=== PATIENT | female | born 1980 | race American Indian/Alaskan Native ===

== ENCOUNTER 2016-12-21 08:12 | Emergency (ER) | payer BC, OTHER ==
[2016-12-21 08:34] VITALS: BP 109/80
--- NOTE | 2016-12-21 09:09 | Emergency Department Report ---
ED General Adult HPI - General Chief complaint: Earache Stated complaint: EAR INFECTION Time Seen by Provider: 12/21/16 08:40 Source: patient Mode of arrival: Ambulatory Limitations: No Limitations - History of Present Illness Initial comments: 36-year-old female presents to the ED complaining about right earache. Patient states she is currently on Augmentin and states that she is still having right sided earache and sinus congestion with pressure. Denies fever, cough, sore throat, shortness of breath, chest pain. States that she has an ENT appointment in about a month. -: Gradual - Related Data Home Medications Medication Instructions Recorded Confirmed Last Taken traMADol [Ultram 50 MG tab] 50 mg PO BID 12/08/14 04/17/15 04/16/15 Pregabalin [Lyrica] 150 mg PO BID 03/12/15 04/17/15 04/16/15 levETIRAcetam [Keppra TAB] 125 mg PO BID 03/12/15 04/17/15 04/17/15 Protonix 1 tab PO DAILY 04/11/15 04/17/15 04/16/15 Zofran 1 tab PO PRN PRN 04/11/15 04/11/15 Unknown Previous Rx's Medication Instructions Recorded Last Taken Type oxyCODONE /ACETAMINOPHEN [Percocet 1 tab PO Q6HR PRN #20 tablet 03/08/15 Rx 5/325 mg] HYDROcodone/APAP 5-325 [[place] 1 each PO Q6HR PRN #15 tablet 05/04/15 Unknown Rx 5/325] Ondansetron [Zofran Odt] 4 mg PO Q4H PRN #15 tab.rapdis 05/04/15 Unknown Rx Fluticasone [Flonase] 1 spray NS QDAY #1 bottle 12/21/16 Unknown Rx Prednisone [predniSONE 10 mg 10 mg PO .TAPER #1 tab.ds.pk 12/21/16 Unknown Rx (6-Day Pack, 21 Tabs)] Allergies Allergy/AdvReac Type Severity Reaction Status Date / Time aspirin AdvReac Bleeding Verified 05/04/15 18:58 carbamazepine [From Tegretol] AdvReac Unknown Verified 05/04/15 18:58 ED Review of Systems ROS: Stated complaint: EAR INFECTION Other details as noted in HPI Constitutional: denies: chills, fever Eyes: denies: eye pain, eye discharge, vision change ENT: ear pain. denies: throat pain Respiratory: denies: cough, shortness of breath, wheezing Cardiovascular: denies: chest pain, palpitations Endocrine: no symptoms reported Gastrointestinal: denies: abdominal pain, nausea, diarrhea Genitourinary: denies: urgency, dysuria, discharge Musculoskeletal: denies: back pain, joint swelling, arthralgia Skin: denies: rash, lesions Neurological: denies: headache, weakness, paresthesias Psychiatric: denies: anxiety, depression Hematological/Lymphatic: denies: easy bleeding, easy bruising ED Past Medical Hx - Past Medical History Previous Medical History?: Yes Hx Hypertension: No Hx CVA: No Hx Congestive Heart Failure: No Hx Diabetes: No Hx GERD: Yes Hx Arthritis: Yes Hx Seizures: Yes (LAST 2013, "jerks" - daily) Hx Asthma: No Hx COPD: No Hx Tuberculosis: No Hx HIV: No Additional medical history: fibromyalgia, mvp, stomach ulcer, GI bleed, spinal stenosis & spondylosis. BILE DUCT STONE - Surgical History Past Surgical History?: Yes Hx Cholecystectomy: Yes Additional Surgical History: endoscopy for ulcer, etopic , tubaligation. BILE DUCT STENT REMOVED - Social History Smoking Status: Never Smoker Substance Use Type: Alcohol - Medications Home Medications: Home Medications Medication Instructions Recorded Confirmed Last Taken Type traMADol [Ultram 50 MG tab] 50 mg PO BID 12/08/14 04/17/15 04/16/15 History oxyCODONE /ACETAMINOPHEN [Percocet 1 tab PO Q6HR PRN #20 tablet 03/08/1504/16/15 Rx 5/325 mg] Pregabalin [Lyrica] 150 mg PO BID 03/12/15 04/17/15 04/16/15 History levETIRAcetam [Keppra TAB] 125 mg PO BID 03/12/15 04/17/15 04/17/15 History Protonix 1 tab PO DAILY 04/11/15 04/17/15 04/16/15 History Zofran 1 tab PO PRN PRN 04/11/15 04/11/15 Unknown History HYDROcodone/APAP 5-325 [[place] 1 each PO Q6HR PRN #15 tablet 05/04/15 Unknown Rx 5/325] Ondansetron [Zofran Odt] 4 mg PO Q4H PRN #15 tab.rapdis 05/04/15 Unknown Rx Fluticasone [Flonase] 1 spray NS QDAY #1 bottle 12/21/16 Unknown Rx Prednisone [predniSONE 10 mg 10 mg PO .TAPER #1 tab.ds.pk 12/21/16 Unknown Rx (6-Day Pack, 21 Tabs)] ED Physical Exam - General Limitations: No Limitations General appearance: alert, in no apparent distress - Head Head exam: Present: atraumatic, normocephalic - Eye Eye exam: Present: normal appearance - ENT ENT exam: Present: mucous membranes moist - Expanded ENT Exam Expanded TM/Canal exam: Effusion: Right TM - Neck Neck exam: Present: normal inspection - Respiratory Respiratory exam: Present: normal lung sounds bilaterally. Absent: respiratory distress - Cardiovascular Cardiovascular Exam: Present: regular rate, normal rhythm. Absent: systolic murmur, diastolic murmur, rubs, gallop - GI/Abdominal GI/Abdominal exam: Present: soft, normal bowel sounds - Extremities Exam Extremities exam: Present: normal inspection - Back Exam Back exam: Present: normal inspection - Neurological Exam Neurological exam: Present: alert, oriented X3 - Psychiatric Psychiatric exam: Present: normal affect, normal mood - Skin Skin exam: Present: warm, dry, intact, normal color. Absent: rash ED Course Vital Signs 12/21/16 08:32 Temperature 98.4 F Pulse Rate 16 L Respiratory 16 Rate Blood Pressure 109/80 O2 Sat by Pulse 100 Oximetry ED Medical Decision Making - Medical Decision Making Patient has fluid in her right middle ear. No sign of infection. Advised to continue taken Augmentin and will add Solu-Medrol and prednisone for outpatient. No acute distress at this time. Critical care attestation.: If time is entered above; I have spent that time in minutes in the direct care of this critically ill patient, excluding procedure time. ED Disposition Clinical Impression: Acute serous otitis media of right ear Disposition: DISCHARGED TO HOME OR SELFCARE Is pt being admited?: No Does the pt Need Aspirin: No Condition: Good Instructions: Earache (ED) Prescriptions: Fluticasone [Flonase] 1 spray NS QDAY #1 bottle Prednisone [predniSONE 10 mg (6-Day Pack, 21 Tabs)] 10 mg PO .TAPER #1 tab.ds.pk Referrals: PRIMARY CARE, [Primary Care Provider] - 3-5 Days Forms: Work/School Release Form(ED) Time of Disposition: 09:09
== END 2016-12-21 09:23 | disposition home or self-care (01) ==
LOC: ED 08:12
DX: H65.01 Acute serous otitis media, right ear (principal); K21.9 Gastro-esophageal reflux disease without esophagitis; M19.90 Unspecified osteoarthritis, unspecified site; Z88.6 Allergy status to analgesic agent; Z88.8 Allergy status to other drugs, medicaments and biological substances
CPT/HCPCS: 96372; 99282; J2930

== ENCOUNTER 2018-01-11 11:50 | Outpatient (CLI) | payer MEDICAID ==
--- NOTE | 2018-01-11 15:30 | XRay Report ---
FINAL REPORT EXAM: XR SPINE CERVICAL 6+V HISTORY: CERVICAL PAIN TECHNIQUE: Seven views of cervical spine. PRIORS: None currently available. FINDINGS: Severe degenerative disc may be causing straightening of the normal lordotic alignment C5-C6 noted. Mild disc space narrowing at C4-C5. Otherwise disc spaces are intact. Vertebral body heights are uniform. No fracture or subluxation. Prevertebral soft tissues are unremarkable. Flexion and extension views are unremarkable. Neural foraminal narrowing is present. No scoliosis. No suspicious osseous lesions. No vertebral anomalies. Lateral masses of C1 are aligned with C2. IMPRESSION: Degenerative discs at C4-C6. Possibly related straightening of the normal lordotic alignment.
== END 2018-01-11 11:51 | disposition home or self-care (01) ==
LOC: XRAY 11:50
PROVIDERS: ATTEND Physical Medicine & Rehabilitation
DX: M50.321 Other cervical disc degeneration at C4-C5 level (principal); M50.322 Other cervical disc degeneration at C5-C6 level
CPT/HCPCS: 72052

== ENCOUNTER 2018-12-21 10:16 | Inpatient (IN) | payer MEDICAID ==
[2018-12-21 10:48] LABS: Basophils # (Auto) 0.1 K/mm3 (0.0-0.1); Basophils % (Auto) 0.9 % (0.0-1.8); Eosinophils % (Auto) 0.4 % (0.0-4.3); Hematocrit 32.3 % (30.3-42.9); Hemoglobin 10.7 gm/dl (10.1-14.3); Lymphocytes # (Auto) 1.3 K/mm3 (1.2-5.4); Lymphocytes % (Auto) 21.6 % (13.4-35.0); Mean Corpuscular HGB Conc 33 % (30-34); Mean Corpuscular Volume 97 fl (79-97); Monocytes # (Auto) 0.2 K/mm3 (0.0-0.8); Monocytes % (Auto) 3.8 % (0.0-7.3); Platelet Count 284 K/mm3 (140-440); Red Blood Count 3.32 M/mm3 (3.65-5.03); Red Cell Distribution Width 16.2 % (13.2-15.2)
[2018-12-21] MEDS ORDERED: NACL 0.9% 1000 ML 1,000 ML IV ONE (11:14)
--- NOTE | 2018-12-21 11:20 | Emergency Department Report ---
HPI - General Chief Complaint: GI Bleed Time Seen by Provider: 12/21/18 10:47 - HPI HPI: 38-year-old female presents to the emergency department with complaint of melanotic stool and vomiting of blood since yesterday morning. She has had one episode of vomiting and about 4 episodes of the dark stool. Patient also says that she just has some generalized weakness and/or fatigue. She denies any fever, chest pain, shortness of breath, vaginal bleeding or discharge. The patient does have a history of previous GI bleed from a gastric ulcer. She also has a history of fibromyalgia, mitral valve prolapse, GERD. Her primary care physician is Dr. Stern. 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 She has not taken anything for her symptoms prior to arrival. ED Past Medical Hx - Past Medical History Hx Hypertension: No Hx CVA: No Hx Congestive Heart Failure: No Hx Diabetes: No Hx GERD: Yes Hx Arthritis: Yes Hx Seizures: Yes (LAST 2013, "jerks" - daily) Hx Asthma: No Hx COPD: No Hx Tuberculosis: No Hx HIV: No Additional medical history: fibromyalgia, mvp, stomach ulcer, GI bleed, spinal stenosis & spondylosis. BILE DUCT STONE - Surgical History Hx Cholecystectomy: Yes Additional Surgical History: endoscopy for ulcer, etopic , tubaligation. BILE DUCT STENT REMOVED - Social History Smoking Status: Never Smoker Substance Use Type: Alcohol - Medications Home Medications: Home Medications Medication Instructions Recorded Confirmed Last Taken Type Ferrous Sulfate [Iron] 325 mg PO DAILY 12/21/18 12/21/18 Unknown History Imitrex 100 mg PO PRN 12/21/18 12/19/18 21:00 History 1 Pregabalin [Lyrica] 225 mg PO BID 12/21/18 12/21/18 Unknown History ED Review of Systems ROS: Stated complaint: BLOOD IN STOOL/LOW ENERGY Other details as noted in HPI Comment: All other systems reviewed and negative Constitutional: denies: chills, fever Eyes: denies: eye pain, vision change ENT: denies: ear pain, throat pain Respiratory: denies: cough, shortness of breath Cardiovascular: denies: chest pain, palpitations Gastrointestinal: nausea, vomiting, hematemesis, melena Genitourinary: denies: dysuria, discharge Musculoskeletal: denies: back pain, arthralgia Skin: denies: rash, lesions Neurological: denies: headache, numbness Physical Exam - Physical Exam Vital Signs: Vital Signs 12/21/18 10:29 Temperature 98.2 F Pulse Rate 121 H Respiratory 99 H Rate Blood Pressure 91/67 O2 Sat by Pulse 99 Oximetry Physical Exam: GENERAL: The patient is well-developed well-nourished. HEENT: Normocephalic. Atraumatic. Patient has moist mucous membranes. EYES: Extraocular motions are intact. Pupils are equal and reactive to light bilaterally. NECK: Supple. Trachea is midline. CHEST/LUNGS: Clear to auscultation. There is no respiratory distress noted. HEART/CARDIOVASCULAR: Regular. There is mild tachycardia. There is no obvious murmur. ABDOMEN: Abdomen is soft, nontender. Patient has normal bowel sounds. There is no abdominal distention. SKIN: Skin is warm and dry. NEURO: The patient is awake, alert, and oriented. The patient is cooperative. The patient has no focal neurologic deficits. The patient has normal speech. MUSCULOSKELETAL: There is no tenderness or deformity. There is no limitation range of motion. There is no evidence of acute injury. RECTAL: Patient has dark melanotic appearing stool that is positive on guaiac testing. ED Course Vital Signs 12/21/18 10:29 Temperature 98.2 F Pulse Rate 121 H Respiratory 99 H Rate Blood Pressure 91/67 O2 Sat by Pulse 99 Oximetry - Consultations Consultation #1: Patient was seen in the emergency department by the nurse practitioner for gastroenterology, Danielle. Since I did check the patient's stool and it appeared melanotic and was positive on guaiac testing, they have recommended that the patient will get an EGD tomorrow and to be nothing by mouth after midnight. 12/21/18 19:06 ED Medical Decision Making - Lab Data Result diagrams: 12/21/18 10:33 12/21/18 10:33 - Medical Decision Making Patient presents with the complaint of one episode of hematemesis with dark bloody vomitus, and at least 4 episodes of melanotic stool. She does have a previous history of gastric ulcer. She presents with some mild tachycardia that improved with some IV fluid resuscitation. Patient started on Protonix. I did a rectal exam which did confirm melanotic appearing stool that was positive on guaiac testing. She was seen in the emergency department by gastroenterology tomorrow. The patient has been made nothing by mouth after midnight. She was accepted for admission by the hospitalist, Dr. Baltazar. - Differential Diagnosis peptic ulcer disease, Elidia-Lezama tear, malignancy Critical Care Time: No Critical care attestation.: If time is entered above; I have spent that time in minutes in the direct care of this critically ill patient, excluding procedure time. ED Disposition Clinical Impression: Melena GI bleed Qualifiers: GI bleed type/associated pathology: melena Qualified Code(s): K92.1 - Melena Hematemesis Qualifiers: Nausea presence: unspecified Qualified Code(s): K92.0 - Hematemesis Disposition: DC-09 OP ADMIT IP TO THIS HOSP Is pt being admited?: Yes Condition: Stable Time of Disposition: 13:45
[2018-12-21 11:29] LABS: BUN/Creatinine Ratio 23; Blood Urea Nitrogen 14 mg/dL (7-17); Calcium 9.2 mg/dL (8.4-10.2); Hemolysis Index 35
[2018-12-21 11:40] LABS: INR 0.99 (0.87-1.13); Partial Thromboplastin Time 24.1 Sec. (24.2-36.6)
[2018-12-21] MEDS ORDERED: PROTONIX IV ONE (11:58)
[2018-12-21 12:07] LABS: Bacteria,Urine 1+ /HPF (Negative); Bilirubin,Urine NEG (Negative); Blood,Urine NEG (Negative); Color,Urine Yellow (Yellow); Mucus,Urine 1+ /HPF; Protein,Urine <15 mg/dL mg/dL (Negative); Urobilinogen,Urine < 2.0 mg/dL (<2.0)
[2018-12-21 12:56] LABS: Alanine Aminotransferase 12 units/L (7-56); Albumin 4.2 g/dL (3.9-5)
[2018-12-21 13:01] LABS: Bilirubin,Direct < 0.2 mg/dL (0-0.2)
--- NOTE | 2018-12-21 13:54 | Consultation ---
History of Present Illness - Reason for Consult Consult date: 12/21/18 GI bleed - History of Present Illness Miss Stacy is a 38-year-old woman who presents with new onset of black tarry bowel movements over the last day. She has a history of peptic ulcer disease in 2003 and therefore came to the emergency room thinking that she might be bleeding. She did have an episode of nausea and vomiting yesterday 1 with what she describes as coffee ground emesis. She denies abdominal pain. There's been no chest pain or shortness of breath. She rarely takes NSAIDs. In the emergency room, the rectal exam showed black stool per the ER physician was Hemoccult-positive. Of note, patient states she started iron approximately 2 weeks ago from her primary care physician. There is no lightheadedness or dizziness. Past History Past Medical History: arthritis, GERD, seizures (last 2013), other (Fibromyalgia, PUD - 2003) Past Surgical History: cholecystectomy, Other (ERCP for gallstones in 2014, ectopic ) Social history: alcohol abuse (occ). denies: smoking Family history: no significant family history Medications and Allergies Allergies Allergy/AdvReac Type Severity Reaction Status Date / Time aspirin AdvReac Bleeding Verified 12/21/18 10:17 carbamazepine [From Tegretol] AdvReac Unknown Verified 12/21/18 10:17 Home Medications Medication Instructions Recorded Confirmed Last Taken Type traMADol [Ultram 50 MG tab] 50 mg PO BID 12/08/14 04/17/15 04/16/15 History oxyCODONE /ACETAMINOPHEN [Percocet 1 tab PO Q6HR PRN #20 tablet 03/08/15 04/17/15 04/16/15 Rx 5/325 mg] Pregabalin [Lyrica] 150 mg PO BID 03/12/15 04/17/15 04/16/15 History levETIRAcetam [Keppra TAB] 125 mg PO BID 03/12/15 04/17/15 04/17/15 History Protonix 1 tab PO DAILY 04/11/15 04/17/15 04/16/15 History Zofran 1 tab PO PRN PRN 04/11/15 04/11/15 Unknown History HYDROcodone/APAP 5-325 [[place] 1 each PO Q6HR PRN #15 tablet 05/04/15 Unknown Rx 5-325 mg TAB] Ondansetron [Zofran Odt] 4 mg PO Q4H PRN #15 tab.rapdis 05/04/15 Unknown Rx Fluticasone [Flonase] 1 spray NS QDAY #1 bottle 12/21/16 Unknown Rx Prednisone [predniSONE 10 mg 10 mg PO .TAPER #1 tab.ds.pk 12/21/16 Unknown Rx (6-Day Pack, 21 Tabs)] Active Meds: Active Medications Pantoprazole Sodium 80 mg/ (Sodium Chloride) 100 mls @ 10 mls/hr IV DIRECT DENAE Review of Systems All systems: negative (as per HPI) Exam - Constitutional Vitals: Temp Pulse Resp BP Pulse Ox 98.2 F 121 H 99 H 91/67 99 12/21/18 10:29 12/21/18 10:29 12/21/18 10:29 12/21/18 10:29 12/21/18 10:29 General appearance: Present: no acute distress - EENT Eyes: Present: PERRL, EOM intact ENT: hearing intact - Respiratory Respiratory effort: normal Respiratory: bilateral: CTA - Cardiovascular Rhythm: other (Tachy) Heart Sounds: Present: S1 & S2 - Extremities Extremities: No edema - Abdominal General gastrointestinal: Present: soft, non-tender - Rectal Rectal Exam: other (stool black) Results - Labs CBC & Chem 7: 12/21/18 10:33 12/21/18 10:33 Labs: Abnormal lab results 12/21/18 12/21/18 12/21/18 Range/Units 10:33 10:33 11:06 RBC 3.32 L (3.65-5.03) M/mm3 RDW 16.2 H (13.2-15.2) % Seg Neutrophils % 73.3 H (40.0-70.0) % APTT 24.1 L (24.2-36.6) Sec. Carbon Dioxide 20 L (22-30) mmol/L Creatinine 0.6 L (0.7-1.2) mg/dL Glucose 108 H (65-100) mg/dL U Epithel Cells (Auto) (0-13.0) /HPF 12/21/18 Range/Units 11:53 RBC (3.65-5.03) M/mm3 RDW (13.2-15.2) % Seg Neutrophils % (40.0-70.0) % APTT (24.2-36.6) Sec. Carbon Dioxide (22-30) mmol/L Creatinine (0.7-1.2) mg/dL Glucose (65-100) mg/dL U Epithel Cells (Auto) 22.0 H (0-13.0) /HPF Assessment and Plan 1. Black stoolHemoccult-positive per year physician. This may represent peptic ulcer disease, or more likely, iron-induced color change. Patient is mildly anemic. Given her history, upper endoscopy would be appropriate. However, she ate solid food today. Since she is hemodynamically stable, we will keep her on clear liquids today and make her nothing by mouth after midnight and do an endoscopy tomorrow. In the meantime, empiric proton pump inhibitors. - Monitor H&H and transfuse as needed -PPI -EGD tomorrow
[2018-12-21] MEDS: PROTONIX 80 MG in NACL 0.9% 100 ML IV SCH (15:14)
[2018-12-21] MEDS ORDERED: REGLAN IV PRN (22:30)
[2018-12-21] MEDS ORDERED: ZOFRAN IV PRN (22:30)
[2018-12-21] MEDS ORDERED: TYLENOL PO PRN (22:30)
[2018-12-21] MEDS ORDERED: SODIUM CHLORIDE FLUSH SYRINGE 10 ML IV PRN (22:30)
[2018-12-21] MEDS ORDERED: DILAUDID IV PRN (22:30)
--- NOTE | 2018-12-21 22:33 | History and Physical Report ---
History of Present Illness Date of examination: 12/21/18 Date of admission: 12/21/18 13:45 Chief complaint: Black stools since yesterday History of present illness: 38-year-old -Malag[place] female with history of migraines and peripheral neuropathy comes in for vomiting blood 2 since yesterday and also melanotic stools since yesterday. Patient has been taking Excedrin for headaches. Has some epigastric pain. No shortness of breath or syncope. Feels slightly lightheaded. No exacerbating or relieving factors. This is the first episode of gastrointestinal bleeding. Past Medical History GERD: Yes Arthritis: Yes Seizures: Yes Additional medical history: fibromyalgia, mvp, stomach ulcer, GI bleed, spinal stenosis & spondylosis. BILE DUCT STONE Surgical History Cholecystectomy: Yes Additional Surgical History: endoscopy for ulcer, etopic , tubaligation. BILE DUCT STENT REMOVED Social History Smoking Status: Never Smoker Substance Use Type: Alcohol Family history Htn Medications Home Medications: Home Medications Medication Instructions Recorded Confirmed Last Taken Type Ferrous Sulfate [Iron] 325 mg PO DAILY 12/21/18 12/21/18 Unknown History Imitrex 100 mg PO PRN 12/21/18 12/19/18 21:00 History 1 Pregabalin [Lyrica] 225 mg PO BID 12/21/18 12/21/18 Unknown History Review of Systems ROS: Stated complaint: BLOOD IN STOOL/LOW ENERGY Other details as noted in HPI Comment: All other systems reviewed and negative Constitutional: denies: chills, fever Eyes: denies: eye pain, vision change ENT: denies: ear pain, throat pain Respiratory: denies: cough, shortness of breath Cardiovascular: denies: chest pain, palpitations Gastrointestinal: nausea, vomiting, hematemesis, melena Genitourinary: denies: dysuria, discharge Musculoskeletal: denies: back pain, arthralgia Skin: denies: rash, lesions Neurological: denies: headache, numbness Past History Past Medical History: arthritis, GERD, seizures (last 2013), other (Fibromyalgia, PUD - 2003) Past Surgical History: cholecystectomy, Other (ERCP for gallstones in 2014, ectopic ) Social history: alcohol abuse (occ). denies: smoking Family history: no significant family history Medications and Allergies Allergies Allergy/AdvReac Type Severity Reaction Status Date / Time aspirin AdvReac Bleeding Verified 12/21/18 10:17 carbamazepine [From Tegretol] AdvReac Unknown Verified 12/21/18 10:17 Home Medications Medication Instructions Recorded Confirmed Last Taken Type Ferrous Sulfate [Iron] 325 mg PO DAILY 12/21/18 12/21/18 Unknown History Imitrex 100 mg PO PRN 12/21/18 12/19/18 21:00 History 1 Pregabalin [Lyrica] 225 mg PO BID 12/21/18 12/21/18 Unknown History Active Meds: Active Medications Pantoprazole Sodium 80 mg/ (Sodium Chloride) 100 mls @ 10 mls/hr IV DIRECT DENAE Last Admin: 12/21/18 15:14 Dose: 8 mg/hr, 10 mls/hr Documented by: Exam - Constitutional Vitals: Temp Pulse Resp BP Pulse Ox 99.3 F 84 18 116/83 100 12/21/18 16:15 12/21/18 16:15 12/21/18 16:15 12/21/18 16:15 12/21/18 16:15 General appearance: Present: no acute distress, well-nourished - EENT Eyes: Present: PERRL ENT: hearing intact, clear oral mucosa - Neck Neck: Present: supple, normal ROM - Respiratory Respiratory effort: normal Respiratory: bilateral: CTA - Cardiovascular Heart rate: 76 Rhythm: regular Heart Sounds: Present: S1 & S2. Absent: rub, click - Extremities Extremities: pulses symmetrical, No edema Peripheral Pulses: within normal limits - Abdominal General gastrointestinal: Present: soft, non-tender, non-distended, normal bowel sounds Female genitourinary: Present: normal - Rectal Rectal Exam: stool dark (occult blood Positive) - Integumentary Integumentary: Present: clear, warm, dry - Musculoskeletal Musculoskeletal: gait normal, strength equal bilaterally - Psychiatric Psychiatric: appropriate mood/affect, intact judgment & insight - Neurologic Neurologic: CNII-XII intact, moves all extremities Results - Labs CBC & Chem 7: 12/21/18 10:33 12/21/18 10:33 Labs: Laboratory Last Values WBC 6.0 K/mm3 (4.5-11.0) 12/21/18 10:33 RBC 3.32 M/mm3 (3.65-5.03) L 12/21/18 10:33 Hgb 10.7 gm/dl (10.1-14.3) 12/21/18 10:33 Hct 32.3 % (30.3-42.9) 12/21/18 10:33 MCV 97 fl (79-97) 12/21/18 10:33 MCH 32 pg (28-32) 12/21/18 10:33 MCHC 33 % (30-34) 12/21/18 10:33 RDW 16.2 % (13.2-15.2) H 12/21/18 10:33 Plt Count 284 K/mm3 (140-440) 12/21/18 10:33 Lymph % (Auto) 21.6 % (13.4-35.0) 12/21/18 10:33 [place] % (Auto) 3.8 % (0.0-7.3) 12/21/18 10:33 Eos % (Auto) 0.4 % (0.0-4.3) 12/21/18 10:33 Baso % (Auto) 0.9 % (0.0-1.8) 12/21/18 10:33 Lymph # 1.3 K/mm3 (1.2-5.4) 12/21/18 10:33 [place] # 0.2 K/mm3 (0.0-0.8) 12/21/18 10:33 Eos # 0.0 K/mm3 (0.0-0.4) 12/21/18 10:33 Baso # 0.1 K/mm3 (0.0-0.1) 12/21/18 10:33 Seg Neutrophils % 73.3 % (40.0-70.0) H 12/21/18 10:33 Seg Neutrophils # 4.4 K/mm3 (1.8-7.7) 12/21/18 10:33 PT 13.5 Sec. (12.2-14.9) 12/21/18 11:06 INR 0.99 (0.87-1.13) 12/21/18 11:06 APTT 24.1 Sec. (24.2-36.6) L 12/21/18 11:06 Sodium 138 mmol/L (137-145) 12/21/18 10:33 Potassium 4.2 mmol/L (3.6-5.0) 12/21/18 10:33 Chloride 101.2 mmol/L (98-107) 12/21/18 10:33 Carbon Dioxide 20 mmol/L (22-30) L 12/21/18 10:33 Anion Gap 21 mmol/L 12/21/18 10:33 BUN 14 mg/dL (7-17) 12/21/18 10:33 Creatinine 0.6 mg/dL (0.7-1.2) L 12/21/18 10:33 Estimated GFR > 60 ml/min 12/21/18 10:33 BUN/Creatinine Ratio 23 % 12/21/18 10:33 Glucose 108 mg/dL (65-100) H 12/21/18 10:33 Calcium 9.2 mg/dL (8.4-10.2) 12/21/18 10:33 Total Bilirubin 0.40 mg/dL (0.1-1.2) 12/21/18 10:33 Direct Bilirubin < 0.2 mg/dL (0-0.2) 12/21/18 10:33 Indirect Bilirubin 0.2 mg/dL 12/21/18 10:33 AST 29 units/L (5-40) 12/21/18 10:33 ALT 12 units/L (7-56) 12/21/18 10:33 Alkaline Phosphatase 62 units/L (35-129) 12/21/18 10:33 Total Protein 7.6 g/dL (6.3-8.2) 12/21/18 10:33 Albumin 4.2 g/dL (3.9-5) 12/21/18 10:33 Albumin/Globulin Ratio 1.2 % 12/21/18 10:33 HCG, Qual Negative (Negative) 12/21/18 11:06 Urine Color Yellow (Yellow) 12/21/18 11:53 Urine Turbidity Slightly-cloudy (Clear) 12/21/18 11:53 Urine pH 5.0 (5.0-7.0) 12/21/18 11:53 Ur Specific [place] 1.015 (1.003-1.030) 12/21/18 11:53 Urine Protein <15 mg/dl mg/dL (Negative) 12/21/18 11:53 Urine Glucose (UA) Neg mg/dL (Negative) 12/21/18 11:53 Urine Ketones Neg mg/dL (Negative) 12/21/18 11:53 Urine Blood Neg (Negative) 12/21/18 11:53 Urine Nitrite Neg (Negative) 12/21/18 11:53 Urine Bilirubin Neg (Negative) 12/21/18 11:53 Urine Urobilinogen < 2.0 mg/dL (<2.0) 12/21/18 11:53 Ur Leukocyte Esterase Neg (Negative) 12/21/18 11:53 Urine WBC (Auto) 4.0 /HPF (0.0-6.0) 12/21/18 11:53 Urine RBC (Auto) 2.0 /HPF (0.0-6.0) 12/21/18 11:53 U Epithel Cells (Auto) 22.0 /HPF (0-13.0) H 12/21/18 11:53 Urine Bacteria (Auto) 1+ /HPF (Negative) 12/21/18 11:53 Urine Mucus 1+ /HPF 12/21/18 11:53 Assessment and Plan Advance Directives: Yes (full code) VTE prophylaxis?: Mechanical Plan of care discussed with patient/family: Yes - Patient Problems (1) GI bleed Current Visit: Yes Status: Acute Qualifiers: GI bleed type/associated pathology: melena Qualified Code(s): K92.1 - Melena Plan to address problem: Probably nonsteroidal induced Monitor hemoglobin and hematocrit and transfuse accordingly IV Protonix drip GI consult requested. (2) Peripheral neuropathy Current Visit: Yes Status: Chronic Qualifiers: Peripheral neuropathy type: polyneuropathy, unspecified Qualified Code(s): G62.9 - Polyneuropathy, unspecified Plan to address problem: We will hold the Lyrica (3) Headache, migraine Current Visit: Yes Status: Inactive Plan to address problem: Hold Imitrex (4) DVT prophylaxis Current Visit: Yes Status: Acute Plan to address problem: On SCDs and GI prophylaxis--- patient on Protonix drip
[2018-12-21] MEDS ORDERED: D5NS 1,000 ML IV SCH (23:00)
[2018-12-21 23:38] LABS: Hematocrit 26.4 % (30.3-42.9); Hemoglobin 8.9 gm/dl (10.1-14.3)
[2018-12-22] MEDS: LYRICA PO SCH ×3 (00:25→22:31)
[2018-12-22] MEDS: PROTONIX 80 MG in NACL 0.9% 100 ML IV SCH ×2 (02:00→23:16)
[2018-12-22 06:40] LABS: Basophils % (Auto) 1.3 % (0.0-1.8); Eosinophils # (Auto) 0.1 K/mm3 (0.0-0.4); Eosinophils % (Auto) 2.9 % (0.0-4.3); Hematocrit 26.7 % (30.3-42.9); Hemoglobin 8.9 gm/dl (10.1-14.3); Lymphocytes # (Auto) 1.4 K/mm3 (1.2-5.4); Lymphocytes % (Auto) 40.9 % (13.4-35.0); Mean Corpuscular HGB Conc 33 % (30-34); Mean Corpuscular Volume 98 fl (79-97); Monocytes # (Auto) 0.2 K/mm3 (0.0-0.8); Monocytes % (Auto) 5.3 % (0.0-7.3); Platelet Count 215 K/mm3 (140-440); Red Blood Count 2.74 M/mm3 (3.65-5.03); Red Cell Distribution Width 16.1 % (13.2-15.2)
[2018-12-22 07:00] LABS: Alanine Aminotransferase 9 units/L (7-56); Albumin 3.7 g/dL (3.9-5); BUN/Creatinine Ratio 13; Blood Urea Nitrogen 8 mg/dL (7-17); Calcium 8.6 mg/dL (8.4-10.2); Hemolysis Index 3
[2018-12-22] MEDS ORDERED: PREGABALIN 225 MG PO SCH (10:00)
[2018-12-22] MEDS: FEOSOL PO SCH (10:00)
--- NOTE | 2018-12-22 10:02 | Progress Note ---
Assessment and Plan / GI bleed Probably nonsteroidal induced Monitor hemoglobin and hematocrit and transfuse accordingly IV Protonix drip GI consult requested and planned for EGd today / Peripheral neuropathy We will resume the Lyrica after EGD / Headache, migraine Hold Imitrex / DVT prophylaxis On SCDs Brief history: 38-year-old -Citizen Of [place] female with history of migraines and peripheral neuropathy has been taking Excedrin for headaches comes in for vomiting blood 2 since yesterday and also melanotic stools for 2 days. Hospitalist Physical exam: GENERAL: well-developed AAF lying on bed appeared to be in no discomfort. HEENT: Normocephalic. Atraumatic. No conjunctival congestion or icterus. Patient has moist mucous membranes. NECK: Supple. Trachea midline. CHEST/LUNGS: Clear to auscultated bilaterally, breathing nonlabored. No wheezes crackles or rhonchi. HEART/CARDIOVASCULAR: Regular in rate and rhythm. S1 and S2 positive. ABDOMEN: Abdomen is soft, nontender. Patient has normal bowel sounds. SKIN: There is no rash. Warm and dry. NEURO: No focal motor deficit. Follows command. MUSCULOSKELETAL: No joint effusion or tenderness. EXTRIMITY: No edema, no cyanosis or clubbing. PSYCH: Cooperative. Subjective Date of service: 12/22/18 Interval history: Patient seen and examined denies any abdominal pain, no overt active bleeding Plan for EGD today Objective - Constitutional Vitals: Vital Signs - 12hr 12/21/18 12/22/18 12/22/18 23:10 04:27 04:32 Temperature 98.7 F 98.0 F 98.8 F Pulse Rate 75 74 82 Respiratory 20 24 20 Rate Blood Pressure 93/59 95/52 112/68 O2 Sat by Pulse 99 98 92 Oximetry - Labs CBC & Chem 7: 12/22/18 15:08 12/22/18 06:01 Labs: Abnormal lab results 12/21/18 12/21/18 12/21/18 Range/Units 10:33 10:33 11:06 WBC (4.5-11.0) K/mm3 RBC 3.32 L (3.65-5.03) M/mm3 Hgb (10.1-14.3) gm/dl Hct (30.3-42.9) % MCV (79-97) fl MCH (28-32) pg RDW 16.2 H (13.2-15.2) % Lymph % (Auto) (13.4-35.0) % Seg Neutrophils % 73.3 H (40.0-70.0) % Seg Neutrophils # (1.8-7.7) K/mm3 APTT 24.1 L (24.2-36.6) Sec. Carbon Dioxide 20 L (22-30) mmol/L Creatinine 0.6 L (0.7-1.2) mg/dL Glucose 108 H (65-100) mg/dL Total Protein (6.3-8.2) g/dL Albumin (3.9-5) g/dL U Epithel Cells (Auto) (0-13.0) /HPF 12/21/18 12/21/18 12/22/18 Range/Units 11:53 23:12 06:01 WBC 3.4 L (4.5-11.0) K/mm3 RBC 2.74 L (3.65-5.03) M/mm3 Hgb 8.9 L 8.9 L (10.1-14.3) gm/dl Hct 26.4 L 26.7 L (30.3-42.9) % MCV 98 H (79-97) fl MCH 33 H (28-32) pg RDW 16.1 H (13.2-15.2) % Lymph % (Auto) 40.9 H (13.4-35.0) % Seg Neutrophils % (40.0-70.0) % Seg Neutrophils # 1.7 L (1.8-7.7) K/mm3 APTT (24.2-36.6) Sec. Carbon Dioxide (22-30) mmol/L Creatinine (0.7-1.2) mg/dL Glucose (65-100) mg/dL Total Protein (6.3-8.2) g/dL Albumin (3.9-5) g/dL U Epithel Cells (Auto) 22.0 H (0-13.0) /HPF 12/22/18 Range/Units 06:01 WBC (4.5-11.0) K/mm3 RBC (3.65-5.03) M/mm3 Hgb (10.1-14.3) gm/dl Hct (30.3-42.9) % MCV (79-97) fl MCH (28-32) pg RDW (13.2-15.2) % Lymph % (Auto) (13.4-35.0) % Seg Neutrophils % (40.0-70.0) % Seg Neutrophils # (1.8-7.7) K/mm3 APTT (24.2-36.6) Sec. Carbon Dioxide (22-30) mmol/L Creatinine 0.6 L (0.7-1.2) mg/dL Glucose (65-100) mg/dL Total Protein 6.2 L (6.3-8.2) g/dL Albumin 3.7 L (3.9-5) g/dL U Epithel Cells (Auto) (0-13.0) /HPF
[2018-12-22] MEDS: DILAUDID IV PRN (11:11)
[2018-12-22] MEDS: SODIUM CHLORIDE FLUSH SYRINGE 10 ML IV SCH ×2 (11:12→22:47)
[2018-12-22] MEDS ORDERED: DIPRIVAN 10 MG/ML IV ONE ×2 (14:26)
[2018-12-22] MEDS ORDERED: XYLOCAINE 2% INFILTRATI ONE (14:27)
[2018-12-22] MEDS ORDERED: NACL 0.9% 1000 ML 1,000 ML IV SCH (15:00)
[2018-12-22 15:18] LABS: Hematocrit 28.4 % (30.3-42.9); Hemoglobin 9.3 gm/dl (10.1-14.3)
[2018-12-22] MEDS ORDERED: WATER FOR IRRIG STERILE IR ONE (16:01)
--- NOTE | 2018-12-22 17:03 | Post Operative Note ---
Pre-op diagnosis: Melena Post-op diagnosis: other (Antral ulcers) Findings: 1. 4 antral ulcers, deep, with white base, noted in antrum, with surrounding edema. Biopsied. No stigmata of bleeding, and no fresh or old blood noted. 2. Otherwise normal EGD. Procedure: EGD with biopsy Anesthesia: [facility] [place] Surgeon: JUNIOR RILEY Estimated blood loss: none Pathology: list (Antral mucosa) Specimen disposition: to lab Condition: stable Disposition: floor (March D/C to home on bid PPI, with outpatient follow up.)
--- NOTE | 2018-12-22 17:44 | Operative Report ---
PROCEDURE: Upper endoscopy with biopsy. PREOPERATIVE DIAGNOSES: Melena and peptic ulcer disease. POSTOPERATIVE DIAGNOSES: Peptic ulcer disease with multiple antral ulcer. SEDATION: MAC by Anesthesia. HISTORY: The patient is a 38-year-old woman who presented with a history of black tarry bowel movements for one day and was noted to be anemic with a hemoglobin of 9.3. She has a history of peptic ulcer disease in the past. She also notes that she has a history of chronic anemia. Procedure, indications, risks, and benefits were explained and consent was obtained. The patient was placed in left lateral decubitus position and sedated. MYR video upper endoscope was passed through the mouth and oropharynx into the descending duodenum and then gradually withdrawn with close inspection of the mucosa. FINDINGS: 1. Normal appearing esophagus. 2. Four ulcers noted in the gastric antrum that were deep with white fibrinous base, the largest measuring 1 cm. There was no stigmata of bleeding and there was no evidence of fresh or old blood. There was some surrounding edema in the antrum. Biopsies were obtained. 3. Remainder of gastric antrum, fundus, body, and cardia were normal appearing. 4. Normal appearing duodenal bulb and duodenum. The patient tolerated the procedure well without immediate complication. IMPRESSION: 1. Multiple gastric antral ulcers -- biopsied. No stigmata of bleeding. 2. Otherwise, normal endoscopy. PLAN: 1. Follow up biopsies. 2. B.i.d. proton pump inhibitors. 3. Follow up as an outpatient in 1 month, and check gastrin level and look for H. pylori. [facility]# [id number] HRC/NTS
--- NOTE | 2018-12-22 17:47 | Discharge Summary ---
Providers - Providers Date of Admission: 12/21/18 13:45 Date of discharge: 12/22/18 Attending physician: STEVENSON FINN 12/21/18 13:43 Consult to Physician [CONS] Routine Comment: Consulting Provider: JUNIOR RILEY Physician Instructions: Reason For Exam: GI Bleed, melena Primary care physician: RONALD MCLEOD Hospitalization Condition: Stable Procedures: EGD: 1. 4 antral ulcers, deep, with white base, noted in antrum, with surrounding edema. Biopsied. No stigmata of bleeding, and no fresh or old blood noted. 2. Otherwise normal EGD. Hospital course: Brief history: 38-year-old -[place] female with history of migraines and peripheral neuropathy has been taking Excedrin for headaches comes in for vomiting blood 2 since yesterday and also melanotic stools for 2 days. Discharge diagnosis: / GI bleed due to gastric ulcer Probably nonsteroidal induced Monitored hemoglobin and hematocrit and placed on IV Protonix drip GI consult requested and s/p EGd today / Peripheral neuropathy, on lyrica / Headache, migraine, on Imitrex / DVT prophylaxis On SCDs Hospitalist Physical exam: GENERAL: well-developed AAF lying on bed appeared to be in no discomfort. HEENT: Normocephalic. Atraumatic. No conjunctival congestion or icterus. Patient has moist mucous membranes. NECK: Supple. Trachea midline. CHEST/LUNGS: Clear to auscultated bilaterally, breathing nonlabored. No wheezes crackles or rhonchi. HEART/CARDIOVASCULAR: Regular in rate and rhythm. S1 and S2 positive. ABDOMEN: Abdomen is soft, nontender. Patient has normal bowel sounds. SKIN: There is no rash. Warm and dry. NEURO: No focal motor deficit. Follows command. MUSCULOSKELETAL: No joint effusion or tenderness. EXTRIMITY: No edema, no cyanosis or clubbing. PSYCH: Cooperative. Disposition: DC-01 TO HOME OR SELFCARE Time spent for discharge: 34 minutes Core Measure Documentation - Palliative Care Palliative Care/ Comfort Measures: Not Applicable - Core Measures Any of the following diagnoses?: none Exam - Constitutional Vitals: Temp Pulse Resp BP Pulse Ox 97.9 F 78 15 107/75 99 12/22/18 16:53 12/22/18 17:23 12/22/18 17:23 12/22/18 17:23 12/22/18 17:23 Plan Activity: advance as tolerated Weight Bearing Status: Weight Bear as Tolerated Diet: regular Follow up with: RONALD MCLEOD DO [Primary Care Provider] - 3-5 Days Forms: Accompanied Note Prescriptions: Pantoprazole [Protonix] 40 mg PO BID #60 tablet
[2018-12-22] MEDS: IMITREX PO PRN (20:08)
[2018-12-23] MEDS: IMITREX PO PRN (07:58)
[2018-12-23] MEDS: FEOSOL PO SCH (09:17)
[2018-12-23] MEDS: LYRICA PO SCH (09:18)
[2018-12-23] MEDS ORDERED: PROTONIX PO SCH (10:00)
--- NOTE | 2018-12-23 10:01 | Discharge Summary ---
Providers - Providers Date of Admission: 12/21/18 13:45 Date of discharge: 12/23/18 Attending physician: REJI KC 12/21/18 13:43 Consult to Physician [CONS] Routine Comment: Consulting Provider: JUNIOR RILEY Physician Instructions: Reason For Exam: GI Bleed, melena Primary care physician: RONALD MCLEOD Hospitalization Reason for admission: GI bleed Condition: Stable Pertinent studies: EGD Procedures: EGD Hospital course: Sachi Stacy is a 38-year-old female with history of migraine headaches and fibromyalgia admitted for evaluation of her GI bleed. Her hemoglobin and hematocrit has been fairly stable during that hospitalization. H&H at the time of discharge was 9.3/28.4 GI consult was obtained and subsequently patient had EGD which showed four antral ulcers with no obvious bleeding Biopsy was done. She is medically stable for discharge she'll be discharged on Protonix 40 mg twice daily and follow up with GI doctor noemí in 2 weeks Disposition: DC-01 TO HOME OR SELFCARE Time spent for discharge: 38 min Core Measure Documentation - Palliative Care Palliative Care/ Comfort Measures: Not Applicable - Core Measures Any of the following diagnoses?: none Exam - Constitutional Vitals: Temp Pulse Resp BP Pulse Ox 99.0 F 82 18 89/57 100 12/23/18 06:03 12/23/18 06:03 12/23/18 06:03 12/23/18 06:03 12/23/18 06:03 General appearance: Present: no acute distress, well-nourished - EENT Eyes: Present: PERRL, EOM intact ENT: hearing intact, clear oral mucosa - Neck Neck: Present: supple, normal ROM. Absent: masses or JVD - Respiratory Respiratory effort: normal Respiratory: bilateral: CTA - Cardiovascular Rhythm: regular Heart Sounds: Present: S1 & S2 - Extremities Extremities: No edema - Abdominal General gastrointestinal: Present: soft, non-tender. Absent: hepatomegaly, splenomegaly Female genitourinary: Present: deferred - Rectal Rectal Exam: deferred - Integumentary Integumentary: Present: clear - Musculoskeletal Musculoskeletal: strength equal bilaterally - Psychiatric Psychiatric: appropriate mood/affect - Neurologic Neurologic: no focal deficits Plan Activity: no restrictions Weight Bearing Status: Full Weight Bearing Diet: regular Follow up with: JUNIOR RILEY MD [Staff Physician] - 7 Days RONALD MCLEOD DO [Primary Care Provider] - 14 Days Forms: Accompanied Note Prescriptions: Imitrex 100 mg PO PRN PRN #30 PRN Reason: Migraine Headache Pantoprazole [Protonix] 40 mg PO BID #60 tablet Pantoprazole [Protonix TAB] 40 mg PO BID #60 tablet Pregabalin [Lyrica] 225 mg PO BID #60 capsule
[2018-12-23] MEDS: DILAUDID IV PRN (10:22)
[2018-12-23] MEDS: SODIUM CHLORIDE FLUSH SYRINGE 10 ML IV SCH (10:23)
[2018-12-23 12:13] VITALS: BP 94/62
== END 2018-12-23 12:50 | disposition home or self-care (01) | DRG 379 ==
LOC: ED 10:16 → 3A 13:45 → OBSVTOIN 13:45
PROVIDERS: ADMIT Internal Medicine; ATTEND Internal Medicine
PROC: 0DB68ZX Excision of Stomach, Via Natural or Artificial Opening Endoscopic, Diagnostic (ICD-10-PCS; principal; 2018-12-22)
DX: K25.4 Chronic or unspecified gastric ulcer with hemorrhage (principal); F10.10 Alcohol abuse, uncomplicated; Y90.0 Blood alcohol level of less than 20 mg/100 ml; G62.9 Polyneuropathy, unspecified; G43.909 Migraine, unspecified, not intractable, without status migrainosus; K21.9 Gastro-esophageal reflux disease without esophagitis; Z98.51 Tubal ligation status; Z82.49 Family history of ischemic heart disease and other diseases of the circulatory system; Z90.49 Acquired absence of other specified parts of digestive tract; Z88.8 Allergy status to other drugs, medicaments and biological substances; Z88.6 Allergy status to analgesic agent
CPT/HCPCS: 36415; 80048; 80053; 80076; 81001; 83036; 84703; 85014; 85018; 85025; 85610; 85730; 88305; 88342; 96361; 96374; 99285; G0378; C9113; J1170; J2704; J7030; J7042

== ENCOUNTER 2019-05-15 06:51 | Emergency (ER) | payer MEDICAID ==
[2019-05-15 06:59] VITALS: BP 109/78
[2019-05-15 08:21] LABS: HCG Qualitative,Urine Negative (Negative)
[2019-05-15 08:22] LABS: Bacteria,Urine 1+ /HPF (Negative); Bilirubin,Urine NEG (Negative); Blood,Urine NEG (Negative); Color,Urine Yellow (Yellow); Mucus,Urine 3+ /HPF; Urobilinogen,Urine < 2.0 mg/dL (<2.0)
[2019-05-15 08:53] LABS: BUN/Creatinine Ratio 20; Basophils # (Auto) 0.1 K/mm3 (0.0-0.1); Blood Urea Nitrogen 14 mg/dL (7-17); Calcium 9.3 mg/dL (8.4-10.2); Eosinophils # (Auto) 0.1 K/mm3 (0.0-0.4); Eosinophils % (Auto) 1.2 % (0.0-4.3); Hemolysis Index 18; Monocytes # (Auto) 0.3 K/mm3 (0.0-0.8); Monocytes % (Auto) 5.1 % (0.0-7.3)
[2019-05-15 08:55] LABS: Basophils % (Auto) 1.2 % (0.0-1.8); Hematocrit 34.6 % (30.3-42.9); Hemoglobin 11.2 gm/dl (10.1-14.3); Lymphocytes # (Auto) 1.2 K/mm3 (1.2-5.4); Lymphocytes % (Auto) 21.4 % (13.4-35.0); Mean Corpuscular HGB Conc 32 % (30-34); Mean Corpuscular Volume 87 fl (79-97); Platelet Count 266 K/mm3 (140-440); Red Blood Count 3.97 M/mm3 (3.65-5.03)
--- NOTE | 2019-05-15 09:08 | Emergency Department Report ---
ED General Adult HPI - General Chief complaint: Weakness Stated complaint: GENERAL WEAKNESS Time Seen by Provider: 05/15/19 07:41 Source: patient Mode of arrival: Ambulatory Limitations: No Limitations - History of Present Illness Initial comments: Patient is a 38-year-old female who presents to the emergency room complains of generalized weakness for the last 3-4 days. Has associated fatigue and nausea. 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 She states occasionally she feels lightheaded after being in the heat and standing up all day. She denies any vomiting, diarrhea, fever or urinary symptoms. past medical history of anemia with a blood transfusion in 2008. She states she has a history of fibromyalgia and PUD and takes Soma and tramadol daily. She has allergy to aspirin and Tegretol. Last menstrual cycle April 19. - Related Data Home Medications Medication Instructions Recorded Confirmed Last Taken Ferrous Sulfate [Iron 325 MG] 325 mg PO DAILY 12/21/18 12/21/18 Unknown Previous Rx's Medication Instructions Recorded Last Taken Type Pantoprazole [Protonix] 40 mg PO BID #60 tablet 12/22/18 Unknown Rx Imitrex 100 mg PO PRN PRN #30 12/23/18 Unknown Rx Pantoprazole [Protonix TAB] 40 mg PO BID #60 tablet 12/23/18 Unknown Rx Pregabalin [Lyrica] 225 mg PO BID #60 capsule 12/23/18 Unknown Rx Nitrofurantoin [place]/M-Cryst 100 mg PO BID 5 Days #10 capsule 05/15/19 Unknown Rx [Macrobid CAP] Allergies Allergy/AdvReac Type Severity Reaction Status Date / Time aspirin AdvReac Bleeding Verified 12/21/18 10:17 carbamazepine [From Tegretol] AdvReac Unknown Verified 12/21/18 10:17 ED Review of Systems ROS: Stated complaint: GENERAL WEAKNESS Other details as noted in HPI Comment: All other systems reviewed and negative ED Past Medical Hx - Past Medical History Previous Medical History?: Yes Hx Hypertension: No Hx CVA: No Hx Congestive Heart Failure: No Hx Diabetes: No Hx GERD: Yes Hx Arthritis: Yes Hx Seizures: Yes (LAST 2013, "jerks" - daily) Hx Asthma: No Hx COPD: No Hx Tuberculosis: No Hx HIV: No Additional medical history: fibromyalgia, mvp, stomach ulcer, GI bleed, spinal stenosis & spondylosis. BILE DUCT STONE. anemia - Surgical History Past Surgical History?: Yes Hx Cholecystectomy: Yes Additional Surgical History: endoscopy for ulcer, etopic , tubaligation. BILE DUCT STENT REMOVED - Social History Smoking Status: Never Smoker Substance Use Type: Alcohol - Medications Home Medications: Home Medications Medication Instructions Recorded Confirmed Last Taken Type Ferrous Sulfate [Iron 325 MG] 325 mg PO DAILY 12/21/18 12/21/18 Unknown History Pantoprazole [Protonix] 40 mg PO BID #60 tablet 12/22/18 Unknown Rx Imitrex 100 mg PO PRN PRN #30 12/23/18 Unknown Rx Pantoprazole [Protonix TAB] 40 mg PO BID #60 tablet 12/23/18 Unknown Rx Pregabalin [Lyrica] 225 mg PO BID #60 capsule 12/23/18 Unknown Rx Nitrofurantoin [place]/M-Cryst 100 mg PO BID 5 Days #10 capsule 05/15/19 Unknown Rx [Macrobid CAP] ED Physical Exam - General Limitations: No Limitations General appearance: alert, in no apparent distress - Head Head exam: Present: atraumatic, normocephalic - Eye Eye exam: Present: normal appearance, PERRL - ENT ENT exam: Present: mucous membranes moist - Respiratory Respiratory exam: Present: normal lung sounds bilaterally. Absent: respiratory distress, wheezes, rales, rhonchi, stridor, chest wall tenderness, accessory mu scle use, decreased breath sounds, prolonged expiratory - Cardiovascular Cardiovascular Exam: Present: regular rate, normal rhythm, normal heart sounds. 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 Absent: motor sensory deficit - Psychiatric Psychiatric exam: Present: normal affect, normal mood - Skin Skin exam: Present: warm, dry, intact ED Course Vital Signs 05/15/19 05/15/19 06:54 09:25 Temperature 98.2 F Pulse Rate 104 H 75 Respiratory 18 16 Rate Blood Pressure 109/78 O2 Sat by Pulse 98 100 Oximetry ED Medical Decision Making - Lab Data Result diagrams: 05/15/19 08:11 05/15/19 08:11 Lab Results 05/15/19 05/15/19 05/15/19 Range/Units 07:53 08:11 08:11 [place] % (Auto) 5.1 (0.0-7.3) % Eos % (Auto) 1.2 (0.0-4.3) % [place] # 0.3 (0.0-0.8) K/mm3 Eos # 0.1 (0.0-0.4) K/mm3 Baso # 0.1 (0.0-0.1) K/mm3 Seg Neutrophils % 71.1 H (40.0-70.0) % Seg Neutrophils # 4.0 (1.8-7.7) K/mm3 Sodium 137 (137-145) mmol/L Potassium 4.4 (3.6-5.0) mmol/L Chloride 100.3 (98-107) mmol/L Carbon Dioxide 25 (22-30) mmol/L Anion Gap 16 mmol/L BUN 14 (7-17) mg/dL Creatinine 0.7 (0.7-1.2) mg/dL Estimated GFR > 60 ml/min BUN/Creatinine Ratio 20 % Glucose 82 (65-100) mg/dL Calcium 9.3 (8.4-10.2) mg/dL Magnesium (1.7-2.3) mg/dL Urine Color Yellow (Yellow) Urine Turbidity Cloudy (Clear) Urine pH 5.0 (5.0-7.0) Ur Specific [place] 1.025 (1.003-1.030) Urine Protein 30 mg/dl (Negative) mg/dL Urine Glucose (UA) Neg (Negative) mg/dL Urine Ketones Tr (Negative) mg/dL Urine Blood Neg (Negative) Urine Nitrite Neg (Negative) Ur Reducing Substances Not Reportable Urine Bilirubin Neg (Negative) Urine Ictotest Not Reportable Urine Urobilinogen < 2.0 (<2.0) mg/dL Ur Leukocyte Esterase Lg (Negative) Urine WBC (Auto) 44.0 H (0.0-6.0) /HPF Urine RBC (Auto) 10.0 (0.0-6.0) /HPF U Epithel Cells (Auto) 9.0 (0-13.0) /HPF Urine Bacteria (Auto) 1+ (Negative) /HPF Urine Mucus 3+ /HPF Urine HCG, Qual Negative (Negative) 05/15/19 Range/Units 08:11 [place] % (Auto) (0.0-7.3) % Eos % (Auto) (0.0-4.3) % [place] # (0.0-0.8) K/mm3 Eos # (0.0-0.4) K/mm3 Baso # (0.0-0.1) K/mm3 Seg Neutrophils % (40.0-70.0) % Seg Neutrophils # (1.8-7.7) K/mm3 Sodium (137-145) mmol/L Potassium (3.6-5.0) mmol/L Chloride (98-107) mmol/L Carbon Dioxide (22-30) mmol/L Anion Gap mmol/L BUN (7-17) mg/dL Creatinine (0.7-1.2) mg/dL Estimated GFR ml/min BUN/Creatinine Ratio % Glucose (65-100) mg/dL Calcium (8.4-10.2) mg/dL Magnesium 2.10 (1.7-2.3) mg/dL Urine Color (Yellow) Urine Turbidity (Clear) Urine pH (5.0-7.0) Ur Specific [place] (1.003-1.030) Urine Protein (Negative) mg/dL Urine Glucose (UA) (Negative) mg/dL Urine Ketones (Negative) mg/dL Urine Blood (Negative) Urine Nitrite (Negative) Ur Reducing Substances Urine Bilirubin (Negative) Urine Ictotest Urine Urobilinogen (<2.0) mg/dL Ur Leukocyte Esterase (Negative) Urine WBC (Auto) (0.0-6.0) /HPF Urine RBC (Auto) (0.0-6.0) /HPF U Epithel Cells (Auto) (0-13.0) /HPF Urine Bacteria (Auto) (Negative) /HPF Urine Mucus /HPF Urine HCG, Qual (Negative) - EKG Data EKG shows normal: sinus rhythm, axis, intervals, QRS complexes Rate: normal - EKG Data 05/15/19 09:08 early repol, no STEMI - Medical Decision Making Patient is a 38-year-old female who presents to the emergency room complains of generalized weakness for the last 3-4 days. Has associated fatigue and nausea. 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 She states occasionally she feels lightheaded after being in the heat and standing up all day. She denies any vomiting, diarrhea, fever or urinary symptoms. past medical history of anemia with a blood transfusion in 2008. She states she has a history of fibromyalgia and PUD and takes Soma and tramadol daily. She has allergy to aspirin and Tegretol. Last menstrual cycle April 19. VSS. labs WNL. H/H are normal. electrolytes are normal. EKG is WNL. UA shows evidence of UTI. examination is WNL, no neuro deficits on exam. pt given prescription for macrobid. advised to take medication as prescribed. Drink plenty of water. Follow-up with primary care doctor next 2-3 days. Return to emergency room for any new or worsening symptoms. - Differential Diagnosis electrolyte abnormality, anemia, UTI, arrhythmia, dehydration Critical care attestation.: If time is entered above; I have spent that time in minutes in the direct care of this critically ill patient, excluding procedure time. ED Disposition Clinical Impression: UTI (urinary tract infection) Qualifiers: Urinary tract infection type: acute cystitis Hematuria presence: without hemat uria Qualified Code(s): N30.00 - Acute cystitis without hematuria Fatigue Qualifiers: Fatigue type: unspecified Qualified Code(s): R53.83 - Other fatigue Disposition: TO HOME OR SELFCARE Is pt being admited?: No Does the pt Need Aspirin: No Condition: Stable Instructions: Urinary Tract Infection in Women (ED) Additional Instructions: Take medication as prescribed. Drink plenty of water. Follow-up with primary care doctor next 2-3 days. Return to emergency room for any new or worsening symptoms. Prescriptions: Nitrofurantoin [place]/M-Cryst [Macrobid CAP] 100 mg PO BID 5 Days #10 capsule Referrals: [facility] [Provider Group] - 2-3 Days Time of Disposition: 09:15 Print Language: TRINIDADIAN
[2019-05-15 09:13] LABS: Red Cell Distribution Width 20.2 % (13.2-15.2)
== END 2019-05-15 09:25 | disposition home or self-care (01) ==
LOC: ED 06:51
DX: N39.0 Urinary tract infection, site not specified (principal); R53.83 Other fatigue; R11.0 Nausea; R42 Dizziness and giddiness; M79.7 Fibromyalgia; K21.9 Gastro-esophageal reflux disease without esophagitis; Z88.6 Allergy status to analgesic agent; Z86.2 Personal history of diseases of the blood and blood-forming organs and certain disorders involving the immune mechanism; Z88.5 Allergy status to narcotic agent; Z79.899 Other long term (current) drug therapy; Z90.49 Acquired absence of other specified parts of digestive tract; Z98.51 Tubal ligation status
CPT/HCPCS: 36415; 80048; 81001; 81025; 83735; 85025; 87086; 93005; 93010; 99283

== ENCOUNTER 2019-05-27 21:03 | Emergency (ER) | payer MEDICAID ==
[2019-05-27 21:42] VITALS: BP 118/80
[2019-05-28] MEDS ORDERED: FUL-GLO OP ONE (00:30)
[2019-05-28] MEDS ORDERED: BENADRYL PO ONE (00:39)
[2019-05-28] MEDS ORDERED: IBUPROFEN PO ONE (00:39)
--- NOTE | 2019-05-28 00:48 | Emergency Department Report ---
Eye Injury/Foreign Body - HPI Eye Location: Left Severity: Moderate Tetanus Status: Up to Date Eye Symptoms: Eye Pain: No, Blurred Vision: No, Eye Redness: Yes, Grinding/Hammering Metal: No, Used Eye Protection: No, Contact Lens Use: No, Recalls Injury: Yes, Photophobia: Yes Other History: pt is a 38 y/o aaf who presents for left eye and eyebrow pain s/p baseball to face 4 days ago there was no loc pt was immediately ambulatory on scene now presents for left eye brown tovar and eye burning redness and photophobia there is no loss of vision visual acquity is 20/30 bilat ED Review of Systems ROS: Stated complaint: HIT IN EYE WITH BASEBALL,LIGHT HURTS Other details as noted in HPI Constitutional: denies: chills, fever Eyes: eye pain. denies: eye discharge, vision change ENT: denies: ear pain, throat pain Respiratory: denies: cough, shortness of breath, wheezing Cardiovascular: denies: chest pain, palpitations Endocrine: no symptoms reported Gastrointestinal: denies: abdominal pain, nausea, diarrhea Genitourinary: denies: urgency, dysuria, discharge Musculoskeletal: denies: back pain, joint swelling, arthralgia Skin: denies: rash, lesions Neurological: denies: headache, weakness, paresthesias Psychiatric: denies: anxiety, depression Hematological/Lymphatic: denies: easy bleeding, easy bruising ED Past Medical Hx - Past Medical History Hx Hypertension: No Hx CVA: No Hx Congestive Heart Failure: No Hx Diabetes: No Hx GERD: Yes Hx Arthritis: Yes Hx Headaches / Migraines: Yes Hx Seizures: Yes (LAST 2013, "jerks" - daily) Hx Asthma: No Hx COPD: No Hx Tuberculosis: No Hx HIV: No Additional medical history: fibromyalgia, mvp, stomach ulcer, GI bleed, spinal stenosis & spondylosis. BILE DUCT STONE. anemia - Surgical History Hx Cholecystectomy: Yes Additional Surgical History: endoscopy for ulcer, etopic , tubaligation, TUBILIGATION. BILE DUCT STENT REMOVED - Social History Smoking Status: Never Smoker Substance Use Type: Alcohol - Medications Home Medications: Home Medications Medication Instructions Recorded Confirmed Last Taken Type Ferrous Sulfate [Iron 325 MG] 325 mg PO DAILY 12/21/18 12/21/18 Unknown History Pantoprazole [Protonix] 40 mg PO BID #60 tablet 12/22/18 Unknown Rx Imitrex 100 mg PO PRN PRN #30 12/23/18 Unknown Rx Pantoprazole [Protonix TAB] 40 mg PO BID #60 tablet 12/23/18 Unknown Rx Pregabalin [Lyrica] 225 mg PO BID #60 capsule 12/23/18 Unknown Rx Nitrofurantoin [place]/M-Cryst 100 mg PO BID 5 Days #10 capsule 05/15/19 Unknown Rx [Macrobid CAP] Acetaminophen [Acetaminophen TAB] 1,000 mg PO Q6HR PRN #30 tablet 05/28/19 Unknown Rx Ibuprofen [Motrin 800 MG tab] 800 mg PO Q8HR PRN #30 tablet 05/28/19 Unknown Rx Ketotifen Fumarate [Zaditor] 2 drop OP DAILY PRN 5 Days #5 ml 05/28/19 Unknown Rx Ofloxacin 0.3% [Ocuflox 0.3% opth] 2 drops OP Q3H 10 Days #5 ml 05/28/19 Unknown Rx Eye Injury Exam - Exam General: Vital signs noted. No distress. Alert and acting appropriately. - Visual Acuity Left Vision Acuity Degree: 20/30 Eye Exam: Left Injection, Left Mucous Discharge, Left Fluorescein Uptake, Left Photophobia, Both EOMI, Neither Chemosis, Neither Abnormal Pupil, Neither Eye Foreign Body, Neither Lid Foreign Body, Neither Purulent Discharge, Neither Corneal Edema Exam: Eye exam left lateral subconjunctival hematoma small corneal abrsion at 11 oclock eyelid inverted as sweep no foreign body noted eye brow ecchymosis no deformity stepoff no crepitus eomi perrla visual acutiy 20/30 bilat ED Course Vital Signs 05/27/19 05/27/19 21:20 22:03 Temperature 98.5 F 98.5 F Pulse Rate 84 86 Respiratory 18 18 Rate Blood Pressure 118/80 118/80 O2 Sat by Pulse 100 100 Oximetry ED Medical Decision Making - Medical Decision Making this is cornea abrasion , subconjunctival hematoma, eyebrow contusion , pt will follow up with ophthalmology, in 2-3 days follow up with pcp in 2-3 day dc to home rx for cipro opthal, zyrtec, ibuprofen, return to ed if symptoms worsen, pt verbalized agreement and understanding of discharge plan. Critical care attestation.: If time is entered above; I have spent that time in minutes in the direct care of this critically ill patient, excluding procedure time. ED Disposition Clinical Impression: Corneal abrasion Qualifiers: Encounter type: initial encounter Laterality: left Qualified Code(s): S05.02XA - Injury of conjunctiva and corneal abrasion without foreign body, left eye, initial encounter Eyebrow contusion Qualifiers: Encounter type: initial encounter Laterality: left Qualified Code(s): S00.12XA - Contusion of left eyelid and periocular area, initial encounter Subconjunctival hematoma Qualifiers: Laterality: left Qualified Code(s): H11.32 - Conjunctival hemorrhage, left eye Disposition: TO HOME OR SELFCARE Is pt being admited?: No Does the pt Need Aspirin: No Condition: Stable Instructions: Corneal Abrasion (ED), Subconjunctival Hemorrhage (ED), Contusion in Adults (ED) Prescriptions: Acetaminophen [Acetaminophen TAB] 1,000 mg PO Q6HR PRN #30 tablet PRN Reason: Pain , Severe (7-10) Ibuprofen [Motrin 800 MG tab] 800 mg PO Q8HR PRN #30 tablet PRN Reason: pain Ofloxacin 0.3% [Ocuflox 0.3% opth] 2 drops OP Q3H 10 Days #5 ml Ketotifen Fumarate [Zaditor] 2 drop OP DAILY PRN 5 Days #5 ml PRN Reason: itching burning eye Referrals: GEOVANNY ACEVEDO MD [Staff Physician] - 3-5 Days RYLAND RAYMOND MD [Staff Physician] - 3-5 Days Forms: Work/School Release Form(ED) Time of Disposition: 01:10
[2019-05-28] MEDS ORDERED: TYLENOL PO ONE (01:09)
== END 2019-05-28 01:30 | disposition home or self-care (01) ==
LOC: ED 21:03
DX: S00.12XA Contusion of left eyelid and periocular area, initial encounter (principal); H11.32 Conjunctival hemorrhage, left eye; K21.0 Gastro-esophageal reflux disease with esophagitis; M19.90 Unspecified osteoarthritis, unspecified site; G43.909 Migraine, unspecified, not intractable, without status migrainosus; Z90.49 Acquired absence of other specified parts of digestive tract; Z98.51 Tubal ligation status; Z79.899 Other long term (current) drug therapy; Z88.6 Allergy status to analgesic agent; Z98.890 Other specified postprocedural states; Z88.8 Allergy status to other drugs, medicaments and biological substances; W21.03XA Struck by baseball, initial encounter; Y93.89 Activity, other specified; Y92.488 Other paved roadways as the place of occurrence of the external cause; Y99.8 Other external cause status
CPT/HCPCS: 99282

== ENCOUNTER 2019-07-21 20:33 | Emergency (ER) | payer MEDICAID ==
--- NOTE | 2019-07-21 21:29 | Event Note ---
ED Screening Note Date of service: 07/21/19 Time: 21:28 ED Screening Note: 39 y o presents with redness and painful lesion to right lower leg This initial assessment/diagnostic orders/clinical plan/treatment(s) is/are subject to change based on patients health status, clinical progression and re- assessment by fellow clinical providers in the ED. Further treatment and workup at subsequent clinical providers discretion. Patient/guardian urged not to elope from the ED as their condition may be serious if not clinically assessed and managed. Initial orders include: acc eval
[2019-07-21] MEDS ORDERED: IBUPROFEN PO ONE (23:18)
[2019-07-21] MEDS ORDERED: KEFLEX PO ONE (23:18)
--- NOTE | 2019-07-21 23:51 | Emergency Department Report ---
ED General Adult HPI - General Chief complaint: Animal Bite Stated complaint: RT ANKLE INFECTION Time Seen by Provider: 07/21/19 21:27 Source: patient Mode of arrival: Ambulatory Limitations: No Limitations - History of Present Illness Initial comments: Patient is a 39-year-old -[place] female who present for infected insect bite to right posterior lower leg there is no bleeding minimal swelling and erythema no numbness no tingling patient states serous drainage intermittent is no fevers chills no nausea no vomiting Onset/Timin -: week(s) Location: lower extremity Radiation: extremity Severity scale (0 -10): 3 Quality: burning, other (itching) Consistency: constant Improves with: none Worsens with: none Associated Symptoms: rash Treatments Prior to Arrival: none - Related Data Home Medications Medication Instructions Recorded Confirmed Last Taken Ferrous Sulfate [Iron 325 MG] 325 mg PO DAILY 12/21/18 12/21/18 Unknown Previous Rx's Medication Instructions Recorded Last Taken Type Pantoprazole [Protonix] 40 mg PO BID #60 tablet 12/22/18 Unknown Rx Imitrex 100 mg PO PRN PRN #30 12/23/18 Unknown Rx Pantoprazole [Protonix TAB] 40 mg PO BID #60 tablet 12/23/18 Unknown Rx Pregabalin [Lyrica] 225 mg PO BID #60 capsule 12/23/18 Unknown Rx Nitrofurantoin [place]/M-Cryst 100 mg PO BID 5 Days #10 capsule 05/15/19 Unknown Rx [Macrobid CAP] Acetaminophen [Acetaminophen TAB] 1,000 mg PO Q6HR PRN #30 tablet 05/28/19 Unknown Rx Ibuprofen [Motrin 800 MG tab] 800 mg PO Q8HR PRN #30 tablet 05/28/19 Unknown Rx Ketotifen Fumarate [Zaditor] 2 drop OP DAILY PRN 5 Days #5 ml 05/28/19 Unknown Rx Ofloxacin 0.3% [Ocuflox 0.3% opth] 2 drops OP Q3H 10 Days #5 ml 05/28/19 Unknown Rx Acetaminophen [Acetaminophen TAB] 1,000 mg PO Q6HR #30 tablet 07/22/19 Unknown Rx Mupirocin [Bactroban 2% OINT] 1 applic TP TID #1 tube 07/22/19 Unknown Rx cephALEXin [Keflex] 500 mg PO Q8HR 10 Days #30 cap 07/22/19 Unknown Rx diphenhydrAMINE [Benadryl CAP] 25 mg PO Q8HR PRN #30 capsule 07/22/19 Unknown Rx Allergies Allergy/AdvReac Type Severity Reaction Status Date / Time aspirin AdvReac Bleeding Verified 12/21/18 10:17 carbamazepine [From Tegretol] AdvReac Unknown Verified 12/21/18 10:17 ED Review of Systems ROS: Stated complaint: RT ANKLE INFECTION Other details as noted in HPI Constitutional: denies: chills, fever Eyes: denies: eye pain, eye discharge, vision change ENT: denies: ear pain, throat pain Respiratory: denies: cough, shortness of breath, wheezing Cardiovascular: denies: chest pain, palpitations Endocrine: no symptoms reported Gastrointestinal: denies: abdominal pain, nausea, diarrhea Genitourinary: denies: urgency, dysuria, discharge Musculoskeletal: denies: back pain, joint swelling, arthralgia Skin: rash, lesions (right posterior lateral leg erythema ) Neurological: denies: headache, weakness, paresthesias Psychiatric: denies: anxiety, depression Hematological/Lymphatic: denies: easy bleeding, easy bruising ED Past Medical Hx - Past Medical History Hx Hypertension: No Hx CVA: No Hx Congestive Heart Failure: No Hx Diabetes: No Hx GERD: Yes Hx Arthritis: Yes Hx Headaches / Migraines: Yes Hx Seizures: Yes (LAST 2013, "jerks" - daily) Hx Asthma: No Hx COPD: No Hx Tuberculosis: No Hx HIV: No Additional medical history: fibromyalgia, mvp, stomach ulcer, GI bleed, spinal stenosis & spondylosis. BILE DUCT STONE. anemia - Surgical History Past Surgical History?: Yes Hx Cholecystectomy: Yes Additional Surgical History: endoscopy for ulcer, etopic , tubaligation, TUBILIGATION. BILE DUCT STENT REMOVED - Social History Smoking Status: Never Smoker Substance Use Type: None - Medications Home Medications: Home Medications Medication Instructions Recorded Confirmed Last Taken Type Ferrous Sulfate [Iron 325 MG] 325 mg PO DAILY 12/21/18 12/21/18 Unknown History Pantoprazole [Protonix] 40 mg PO BID #60 tablet 12/22/18 Unknown Rx Imitrex 100 mg PO PRN PRN #30 12/23/18 Unknown Rx Pantoprazole [Protonix TAB] 40 mg PO BID #60 tablet 12/23/18 Unknown Rx Pregabalin [Lyrica] 225 mg PO BID #60 capsule 12/23/18 Unknown Rx Nitrofurantoin [place]/M-Cryst 100 mg PO BID 5 Days #10 capsule 05/15/19 Unknown Rx [Macrobid CAP] Acetaminophen [Acetaminophen TAB] 1,000 mg PO Q6HR PRN #30 tablet 05/28/19 Unknown Rx Ibuprofen [Motrin 800 MG tab] 800 mg PO Q8HR PRN #30 tablet 05/28/19 Unknown Rx Ketotifen Fumarate [Zaditor] 2 drop OP DAILY PRN 5 Days #5 ml 05/28/19 Unknown Rx Ofloxacin 0.3% [Ocuflox 0.3% opth] 2 drops OP Q3H 10 Days #5 ml 05/28/19 Unknown Rx Acetaminophen [Acetaminophen TAB] 1,000 mg PO Q6HR #30 tablet 07/22/19 Unknown Rx Mupirocin [Bactroban 2% OINT] 1 applic TP TID #1 tube 07/22/19 Unknown Rx cephALEXin [Keflex] 500 mg PO Q8HR 10 Days #30 cap 07/22/19 Unknown Rx diphenhydrAMINE [Benadryl CAP] 25 mg PO Q8HR PRN #30 capsule 07/22/19 Unknown Rx ED Physical Exam - General Limitations: No Limitations General appearance: alert, in no apparent distress - Head Head exam: Present: atraumatic, normocephalic - Eye Eye exam: Present: normal appearance, PERRL, EOMI Pupils: Present: normal accommodation - ENT ENT exam: Present: mucous membranes moist - Neck Neck exam: Present: normal inspection, full ROM. Absent: tenderness - Respiratory Respiratory exam: Present: normal lung sounds bilaterally. Absent: respiratory distress, wheezes, stridor, chest wall tenderness, prolonged expiratory - Cardiovascular Cardiovascular Exam: Present: regular rate, normal rhythm, normal heart sounds. Absent: systolic murmur, diastolic murmur, rubs, gallop - GI/Abdominal GI/Abdominal exam: Present: soft, normal bowel sounds. Absent: distended, tenderness, bruit, hernia - Rectal Rectal exam: Present: deferred - Extremities Exam Extremities exam: Present: normal inspection. Absent: normal capillary refill, calf tenderness - Back Exam Back exam: Present: normal inspection, full ROM. Absent: tenderness, CVA tenderness (R), CVA tenderness (L), rash noted - Neurological Exam Neurological exam: Present: alert, oriented X3, CN II-XII intact, motor sensory deficit, reflexes normal. Absent: normal gait - Psychiatric Psychiatric exam: Present: normal affect, normal mood, anxious, suicidal ideation - Skin Skin exam: Present: warm, dry, intact, normal color, rash (right lower leg as above ) ED Course Vital Signs 07/21/19 21:29 Temperature 98.6 F Pulse Rate 91 H Respiratory 18 Rate Blood Pressure 112/81 O2 Sat by Pulse 99 Oximetry ED Medical Decision Making - Radiology Data Radiology results: report reviewed, image reviewed - Medical Decision Making this is a an infected insect bit plan muroirocin , benadryl, keflex follow up with pcp in 2-3 days. Critical care attestation.: If time is entered above; I have spent that time in minutes in the direct care of this critically ill patient, excluding procedure time. ED Disposition Clinical Impression: Infected abrasion Insect bite of leg, right Qualifiers: Encounter type: initial encounter Qualified Code(s): S80.861A - Insect bite (nonvenomous), right lower leg, initial encounter; W57.XXXA - Bitten or stung by nonvenomous insect and other nonvenomous arthropods, initial encounter Disposition: DC-01 TO HOME OR SELFCARE Is pt being admited?: No Does the pt Need Aspirin: No Condition: Stable Instructions: Insect Bite or Sting (ED) Prescriptions: Acetaminophen [Acetaminophen TAB] 1,000 mg PO Q6HR #30 tablet Mupirocin [Bactroban 2% OINT] 1 applic TP TID #1 tube diphenhydrAMINE [Benadryl CAP] 25 mg PO Q8HR PRN #30 capsule PRN Reason: Itching cephALEXin [Keflex] 500 mg PO Q8HR 10 Days #30 cap Referrals: PRIMARY CARE, [Referring] - 3-5 Days Forms: Work/School Release Form(ED) Time of Disposition: 00:03
[2019-07-22 00:13] VITALS: BP 110/85
== END 2019-07-22 00:14 | disposition home or self-care (01) ==
LOC: ED 20:33
DX: S80.861A Insect bite (nonvenomous), right lower leg, initial encounter (principal); X58.XXXA Exposure to other specified factors, initial encounter; Y93.89 Activity, other specified; Y92.89 Other specified places as the place of occurrence of the external cause; Y99.8 Other external cause status
CPT/HCPCS: 99282

== ENCOUNTER 2020-12-30 16:17 | Outpatient (CLI) | payer OTHER ==
--- NOTE | 2020-12-30 17:31 | XRay Report ---
CERVICAL SPINE 4 VIEWS THORACIC SPINE AP LAT VIEWS LUMBAR SPINE 3 VIEWS INDICATION: M79.7 FIBROMYALGIAL; M50.321 cervical disc degeneration at C4-C5. COMPARISON: No relevant prior imaging study available. FINDINGS: Cervical spine: There is discogenic degenerative change at C5-6 evidenced by disc space narrowing and osteophyte formation. Disc spaces are otherwise unremarkable. No fracture or subluxation. Alignment is normal. No prevertebral soft tissue swelling. Thoracic spine: Vertebral body height and disc space height is maintained. Alignment is normal. Lumbar spine: Vertebral body height and disc space height is maintained. Alignment is normal. SI join ts are within normal limits. IMPRESSION: 1. No acute findings. 2. Discogenic degenerative change at C5-6. Signer Name: Jaden Harrison MD Signed: 12/30/2020 5:26 PM Workstation Name: [id number]
== END 2020-12-30 16:18 | disposition home or self-care (01) ==
LOC: XRAY 16:17
PROVIDERS: ATTEND Psychiatry & Neurology Neurology
DX: M50.322 Other cervical disc degeneration at C5-C6 level (principal); M79.7 Fibromyalgia
CPT/HCPCS: 72040; 72072; 72100

== ENCOUNTER 2021-05-31 10:11 | Emergency (ER) | payer OTHER ==
[2021-05-31 10:26] VITALS: BP 160/99
--- NOTE | 2021-05-31 10:55 | XRay Report ---
XR hand BILAT 3+V INDICATION / CLINICAL INFORMATION: fall with bilat hand & wrist pain. COMPARISON: None available. FINDINGS: BONES/JOINT(S): No acute fracture or subluxation. No significant degenerative changes. SOFT TISSUES: No significant abnormality. ADDITIONAL FINDINGS: None. Signer Name: Suleiman Gold MD Signed: 05/31/2021 10:51 AM Workstation Name: [id number]
--- NOTE | 2021-05-31 11:01 | Emergency Department Report ---
ED Upper Extremity Inj HPI - General Chief Complaint: Fall Stated Complaint: FELL AT WORK YESTERDAY. PAIN ON LFET SIDE/ BOTH AR Time Seen by Provider: 05/31/21 10:22 Source: patient Mode of arrival: Ambulatory Limitations: No Limitations - History of Present Illness Initial Comments: This is a 40-year-old female nontoxic, well nourished in appearance, no acute signs of distress presents to the ED with c/o of bilateral hand pain 1 day. Patient stated that while at work she had a ground-level trip and fall but to bilateral hands. Patient denies any other injuries or trauma. Denies any neck pain, back pain or LOC. Patient denies any numbness, tingling, fever, chills, nausea, vomiting, chest pain, shortness of breath, headache, stiff neck. Patie nt denies any joint swelling or joint redness. Patient denies decreased range of motion but stated has some pain. Patient stated allergies to aspirin and carbamazepine. MD Complaint: Injury to:: left, right, hand -: days(s) Other Extremity Injury: Hand: Left, Right Other Injuries: none Severity scale (0 -10): 3 Improves With: none Worsens With: none Context: fall Associated Symptoms: denies other symptoms. denies: weakness, numbness, neck pain, suspects foreign body, nausea/vomiting, heard/felt popping sensat - Related Data Home Medications Medication Instructions Recorded Confirmed Last Taken Ferrous Sulfate [Iron 325 MG] 325 mg PO DAILY 12/21/18 12/21/18 Unknown Previous Rx's Medication Instructions Recorded Last Taken Type Pantoprazole [Protonix] 40 mg PO BID #60 tablet 12/22/18 Unknown Rx Imitrex 100 mg PO PRN PRN #30 12/23/18 Unknown Rx Pantoprazole [Protonix TAB] 40 mg PO BID #60 tablet 12/23/18 Unknown Rx Pregabalin [Lyrica] 225 mg PO BID #60 capsule 12/23/18 Unknown Rx Nitrofurantoin [place]/M-Cryst 100 mg PO BID 5 Days #10 capsule 05/15/19 Unknown Rx [Macrobid CAP] Acetaminophen [Acetaminophen TAB] 1,000 mg PO Q6HR PRN #30 tablet 05/28/19 Unknown Rx Ibuprofen [Motrin 800 MG tab] 800 mg PO Q8HR PRN #30 tablet 05/28/19 Unknown Rx Ketotifen Fumarate [Zaditor] 2 drop OP DAILY PRN 5 Days #5 ml 05/28/19 Unknown Rx Ofloxacin 0.3% [Ocuflox 0.3% opth] 2 drops OP Q3H 10 Days #5 ml 05/28/19 Unknown Rx Acetaminophen [Acetaminophen TAB] 1,000 mg PO Q6HR #30 tablet 07/22/19 Unknown Rx Mupirocin [Bactroban 2% OINT] 1 applic TP TID #1 tube 07/22/19 Unknown Rx cephALEXin [Keflex] 500 mg PO Q8HR 10 Days #30 cap 07/22/19 Unknown Rx diphenhydrAMINE [Benadryl CAP] 25 mg PO Q8HR PRN #30 capsule 07/22/19 Unknown Rx Naproxen 500 mg PO Q12H PRN #12 tablet 05/31/21 Unknown Rx Allergies Allergy/AdvReac Type Severity Reaction Status Date / Time aspirin AdvReac Bleeding Verified 12/21/18 10:17 carbamazepine [From Tegretol] AdvReac Unknown Verified 12/21/18 10:17 ED Review of Systems ROS: Stated complaint: FELL AT WORK YESTERDAY. PAIN ON LFET SIDE/ BOTH AR Other details as noted in HPI Comment: All other systems reviewed and negative Constitutional: denies: chills, fever Eyes: denies: eye pain, eye discharge, vision change ENT: denies: ear pain, throat pain Respiratory: denies: cough, shortness of breath, wheezing Cardiovascular: denies: chest pain, palpitations Endocrine: no symptoms reported Gastrointestinal: denies: abdominal pain, nausea, diarrhea Genitourinary: denies: urgency, dysuria, discharge Musculoskeletal: denies: back pain, joint swelling, arthralgia Skin: denies: rash, lesions Neurological: denies: headache, weakness, paresthesias Psychiatric: denies: anxiety, depression Hematological/Lymphatic: denies: easy bleeding, easy bruising ED Past Medical Hx - Past Medical History Previous Medical History?: Yes Hx Hypertension: No Hx CVA: No Hx Congestive Heart Failure: No Hx Diabetes: No Hx GERD: Yes Hx Arthritis: Yes Hx Headaches / Migraines: Yes Hx Seizures: Yes (LAST 2013, "jerks" - daily) Hx Asthma: No Hx COPD: No Hx Tuberculosis: No Hx HIV: No Additional medical history: fibromyalgia, mvp, stomach ulcer, GI bleed, spinal stenosis & spondylosis. BILE DUCT STONE. anemia - Surgical History Past Surgical History?: Yes Hx Cholecystectomy: Yes Additional Surgical History: endoscopy for ulcer, etopic , tubaligation, TUBILIGATION. BILE DUCT STENT REMOVED - Social History Smoking Status: Never Smoker Substance Use Type: Alcohol - Medications Home Medications: Home Medications Medication Instructions Recorded Confirmed Last Taken Type Ferrous Sulfate [Iron 325 MG] 325 mg PO DAILY 12/21/18 12/21/18 Unknown History Pantoprazole [Protonix] 40 mg PO BID #60 tablet 12/22/18 Unknown Rx Imitrex 100 mg PO PRN PRN #30 12/23/18 Unknown Rx Pantoprazole [Protonix TAB] 40 mg PO BID #60 tablet 12/23/18 Unknown Rx Pregabalin [Lyrica] 225 mg PO BID #60 capsule 12/23/18 Unknown Rx Nitrofurantoin [place]/M-Cryst 100 mg PO BID 5 Days #10 capsule 05/15/19 Unknown Rx [Macrobid CAP] Acetaminophen [Acetaminophen TAB] 1,000 mg PO Q6HR PRN #30 tablet 05/28/19 Unknown Rx Ibuprofen [Motrin 800 MG tab] 800 mg PO Q8HR PRN #30 tablet 05/28/19 Unknown Rx Ketotifen Fumarate [Zaditor] 2 drop OP DAILY PRN 5 Days #5 ml 05/28/19 Unknown Rx Ofloxacin 0.3% [Ocuflox 0.3% opth] 2 drops OP Q3H 10 Days #5 ml 05/28/19 Unknown Rx Acetaminophen [Acetaminophen TAB] 1,000 mg PO Q6HR #30 tablet 07/22/19 Unknown Rx Mupirocin [Bactroban 2% OINT] 1 applic TP TID #1 tube 07/22/19 Unknown Rx cephALEXin [Keflex] 500 mg PO Q8HR 10 Days #30 cap 07/22/19 Unknown Rx diphenhydrAMINE [Benadryl CAP] 25 mg PO Q8HR PRN #30 capsule 07/22/19 Unknown Rx Naproxen 500 mg PO Q12H PRN #12 tablet 05/31/21 Unknown Rx ED Physical Exam - General Limitations: No Limitations General appearance: alert, in no apparent distress - Head Head exam: Present: atraumatic, normocephalic - Eye Eye exam: Present: normal appearance - Neck Neck exam: Present: normal inspection, full ROM. Absent: lymphadenopathy - Respiratory Respiratory exam: Absent: respiratory distress - Cardiovascular Cardiovascular Exam: Present: regular rate - GI/Abdominal GI/Abdominal exam: Present: soft. Absent: distended, tenderness - Extremities Exam Extremities exam: Present: normal inspection, full ROM, tenderness, normal capillary refill. Absent: joint swelling - Expanded Upper Extremity Exam Left General: Present: normal inspection Shoulder Exam: Present: normal inspection (Bilateral exam), full ROM (Bilateral exam). Absent: tenderness (Bilateral exam), swelling (Bilateral exam) Upper Arm exam: Present: normal inspection (Bilateral exam), full ROM (Bilateral exam). Absent: tenderness (Bilateral exam), swelling (Bilateral exam) Elbow exam: Present: normal inspection (Bilateral exam), full ROM (Bilateral exam). Absent: tenderness (Bilateral exam), swelling (Bilateral exam) Forearm Wrist exam: Present: normal inspection (Bilateral exam), full ROM (Bilateral exam). Absent: tenderness (Bilateral exam), swelling (Bilateral exam), abrasion (Bilateral exam), laceration (Bilateral exam), ecchymosis (Bilateral exam), deformity (Bilateral exam), crepidus (Bilateral exam), dislocation (Bilateral exam), erythema (Bilateral exam), tenderness over anatomical snuff box (Bilateral exam), pain with axial thumb loading (Bilateral exam) Hand Wrist exam: Present: normal inspection (Bilateral exam), full ROM (Bilateral exam), tenderness (Bilateral exam). Absent: swelling (Bilateral exam), abrasion (Bilateral exam), laceration (Bilateral exam), ecchymosis (Bilateral exam), deformity (Bilateral exam), crepidus (Bilateral exam), dislocation (Bilateral exam), erythema (Bilateral exam), amputation (Bilateral exam), nail avulsion (Bilateral exam), subungual hematoma (Bilateral exam) Vascular: Present: normal capillary refill (Bilateral exam). Absent: vascular compromise (Bilateral exam: Neurovascular within normal limits) - Back Exam Back exam: Present: normal inspection, full ROM. Absent: tenderness, CVA tenderness (R), CVA tenderness (L), muscle spasm, paraspinal tenderness, vertebral tenderness, rash noted - Neurological Exam Neurological exam: Present: alert, oriented X3, normal gait - Psychiatric Psychiatric exam: Present: normal affect, normal mood - Skin Skin exam: Present: warm, dry, intact, normal color. Absent: rash ED Course Vital Signs 05/31/21 10:24 Temperature 99.2 F Pulse Rate 75 Respiratory 20 Rate Blood Pressure 160/99 O2 Sat by Pulse 100 Oximetry - Reevaluation(s) Reevaluation #1: 05/31/21 11:01 Patient is speaking in full sentences with no signs of distress noted. ED Medical Decision Making - Radiology Data [facility] [address] [place] [address] XRay Report Signed Patient: MARGRET SAUER MR#: [id number] : 1980 Acct:[id number] Age/Sex: 40 / F ADM Date: 05/31/21 Loc: ED Attending Dr: Ordering Physician: ULYSSES HERNANDEZ NP Date of Service: 05/31/21 Procedure(s): XR hand BILAT 3+V Accession Number(s): [id number] cc: ULYSSES HERNANDEZ NP Fluoro Time In Minutes: XR hand BILAT 3+V INDICATION / CLINICAL INFORMATION: fall with bilat hand wrist pain. COMPARISON: None available. FINDINGS: BONES/JOINT(S): No acute fracture or subluxation. No significant degenerative changes. SOFT TISSUES: No significant abnormality. ADDITIONAL FINDINGS: None. Signer Name: Suleiman Gold MD Signed: 05/31/2021 10:51 AM Workstation Name: [id number] Transcribed By: NATASHA Dictated By: Suleiman Gold MD Electronically Authenticated By: Suleiman Gold MD Signed Date/Time: 05/31/21 1051 DD/ 1050 TD/TT: - Medical Decision Making This is a 40-year-old female that presents with bilateral hand strain. Patient is stable and was examined by me. I referred patient to an orthopedic doctor for further evaluation for possible MRI. X-ray has been obtained and dictated by the radiologist. Patient is notified of the x-ray report with noted by the patient. Patient does have normal range of motion with some tenderness but no joint swelling. No ecchymosis. no joint redness or swelling. Not warm to touch. No signs of cellulites present. Patient has wrist immobilizer [id number] which was instructed to continue using for pain comfort. Patient was instructed to RICE therapy. Patient is discharged with naproxen. At time of discharge, the patient does not seem toxic or ill in appearance. No acute signs of distress noted. Patient agrees to discharge treatment plan of care. No further questions noted by the patient. Critical care attestation.: If time is entered above; I have spent that time in minutes in the direct care of this critically ill patient, excluding procedure time. ED Disposition Clinical Impression: Fall Qualifiers: Encounter type: initial encounter Qualified Code(s): W19.XXXA - Unspecified fall, initial encounter Hand strain Qualifiers: Encounter type: initial encounter Laterality: unspecified laterality Qualified Code(s): S66.919A - Strain of unspecified muscle, fascia and tendon at wrist and hand level, unspecified hand, initial encounter Disposition: TO HOME OR SELFCARE Is pt being admited?: No Does the pt Need Aspirin: No Condition: Stable Additional Instructions: Follow-up with a orthopedic doctor in 3-5 days or if symptoms worsen and continue return to emergency room as soon as possible. No physical activity that extremity until cleared by orthopedic doctor Prescriptions: Naproxen 500 mg PO Q12H PRN #12 tablet PRN Reason: Pain , Severe (7-10) Referrals: PRIMARY CAREMD [Referring] - 3-5 Days SANDY PELAEZ MD [Staff Physician] - 3-5 Days Forms: Work/School Release Form(ED) Time of Disposition: 11:09
== END 2021-05-31 11:31 | disposition home or self-care (01) ==
LOC: ED 10:11
DX: S66.812A Strain of other specified muscles, fascia and tendons at wrist and hand level, left hand, initial encounter (principal); S66.811A Strain of other specified muscles, fascia and tendons at wrist and hand level, right hand, initial encounter; G43.909 Migraine, unspecified, not intractable, without status migrainosus; K21.9 Gastro-esophageal reflux disease without esophagitis; E11.8 Type 2 diabetes mellitus with unspecified complications; R56.9 Unspecified convulsions; Z98.890 Other specified postprocedural states; Z88.6 Allergy status to analgesic agent; Z88.8 Allergy status to other drugs, medicaments and biological substances; W18.30XA Fall on same level, unspecified, initial encounter; Y93.89 Activity, other specified; Y92.89 Other specified places as the place of occurrence of the external cause; Y99.8 Other external cause status
CPT/HCPCS: 99283

== ENCOUNTER 2022-03-06 12:13 | Emergency (ER) | payer OTHER ==
[2022-03-06 12:40] VITALS: BP 118/79
--- NOTE | 2022-03-06 13:02 | Emergency Department Report ---
ED General Adult HPI - General Chief complaint: Seizure Stated complaint: SEIZURE JERKS PUI?: No Source: family Mode of arrival: Ambulatory Limitations: No Limitations - History of Present Illness Initial comments: Patient comes in wanting to start back on her seizure medications. Has been having " mono clonic movement". Has been of/f of her medication since 2013. Not sure what her dose was. Has an appointment next month with her neurologist. No seizure activity. Severity scale (0 -10): 0 - Related Data Home Medications Medication Instructions Recorded Confirmed Last Taken Ferrous Sulfate [Iron 325 MG] 325 mg PO DAILY 12/21/18 12/21/18 Unknown Previous Rx's Medication Instructions Recorded Last Taken Type Pantoprazole [Protonix] 40 mg PO BID #60 tablet 12/22/18 Unknown Rx Imitrex 100 mg PO PRN PRN #30 12/23/18 Unknown Rx Pantoprazole [Protonix TAB] 40 mg PO BID #60 tablet 12/23/18 Unknown Rx Pregabalin [Lyrica] 225 mg PO BID #60 capsule 12/23/18 Unknown Rx Nitrofurantoin [place]/M-Cryst 100 mg PO BID 5 Days #10 capsule 05/15/19 Unknown Rx [Macrobid CAP] Acetaminophen [Acetaminophen TAB] 1,000 mg PO Q6HR PRN #30 tablet 05/28/19 Unknown Rx Ibuprofen [Motrin 800 MG tab] 800 mg PO Q8HR PRN #30 tablet 05/28/19 Unknown Rx Ketotifen Fumarate [Zaditor] 2 drop OP DAILY PRN 5 Days #5 ml 05/28/19 Unknown Rx Ofloxacin 0.3% [Ocuflox 0.3% opth] 2 drops OP Q3H 10 Days #5 ml 05/28/19 Unknown Rx Acetaminophen [Acetaminophen TAB] 1,000 mg PO Q6HR #30 tablet 07/22/19 Unknown Rx Mupirocin [Bactroban 2% OINT] 1 applic TP TID #1 tube 07/22/19 Unknown Rx cephALEXin [Keflex] 500 mg PO Q8HR 10 Days #30 cap 07/22/19 Unknown Rx diphenhydrAMINE [Benadryl CAP] 25 mg PO Q8HR PRN #30 capsule 07/22/19 Unknown Rx Naproxen 500 mg PO Q12H PRN #12 tablet 05/31/21 Unknown Rx levETIRAcetam [Keppra TAB] 500 mg PO BID #60 tablet 03/06/22 Unknown Rx Allergies Allergy/AdvReac Type Severity Reaction Status Date / Time aspirin AdvReac Mild Bleeding Verified 03/06/22 12:32 carbamazepine [From Tegretol] AdvReac Mild Unknown Verified 03/06/22 12:32 ED Review of Systems ROS: Stated complaint: SEIZURE JERKS Other details as noted in HPI ED Past Medical Hx - Past Medical History Hx Hypertension: No Hx CVA: No Hx Congestive Heart Failure: No Hx Diabetes: No Hx GERD: Yes Hx Arthritis: Yes Hx Headaches / Migraines: Yes Hx Seizures: Yes (LAST 2013, "jerks" - daily) Hx Asthma: No Hx COPD: No Hx Tuberculosis: No Hx HIV: No Additional medical history: fibromyalgia, mvp, stomach ulcer, GI bleed, spinal stenosis & spondylosis. BILE DUCT STONE. anemia - Surgical History Hx Cholecystectomy: Yes Additional Surgical History: endoscopy for ulcer, etopic , tubaligation, TUBILIGATION. BILE DUCT STENT REMOVED - Social History Smoking Status: Never Smoker - Medications Home Medications: Home Medications Medication Instructions Recorded Confirmed Last Taken Type Ferrous Sulfate [Iron 325 MG] 325 mg PO DAILY 12/21/18 12/21/18 Unknown History Pantoprazole [Protonix] 40 mg PO BID #60 tablet 12/22/18 Unknown Rx Imitrex 100 mg PO PRN PRN #30 12/23/18 Unknown Rx Pantoprazole [Protonix TAB] 40 mg PO BID #60 tablet 12/23/18 Unknown Rx Pregabalin [Lyrica] 225 mg PO BID #60 capsule 12/23/18 Unknown Rx Nitrofurantoin [place]/M-Cryst 100 mg PO BID 5 Days #10 capsule 05/15/19 Unknown Rx [Macrobid CAP] Acetaminophen [Acetaminophen TAB] 1,000 mg PO Q6HR PRN #30 tablet 05/28/19 Unknown Rx Ibuprofen [Motrin 800 MG tab] 800 mg PO Q8HR PRN #30 tablet 05/28/19 Unknown Rx Ketotifen Fumarate [Zaditor] 2 drop OP DAILY PRN 5 Days #5 ml 05/28/19 Unknown Rx Ofloxacin 0.3% [Ocuflox 0.3% opth] 2 drops OP Q3H 10 Days #5 ml 05/28/19 Unknown Rx Acetaminophen [Acetaminophen TAB] 1,000 mg PO Q6HR #30 tablet 07/22/19 Unknown Rx Mupirocin [Bactroban 2% OINT] 1 applic TP TID #1 tube 07/22/19 Unknown Rx cephALEXin [Keflex] 500 mg PO Q8HR 10 Days #30 cap 07/22/19 Unknown Rx diphenhydrAMINE [Benadryl CAP] 25 mg PO Q8HR PRN #30 capsule 07/22/19 Unknown Rx Naproxen 500 mg PO Q12H PRN #12 tablet 05/31/21 Unknown Rx levETIRAcetam [Keppra TAB] 500 mg PO BID #60 tablet 03/06/22 Unknown Rx ED Physical Exam - General Limitations: No Limitations ED Course Vital Signs 03/06/22 03/06/22 03/06/22 12:32 12:40 13:27 Temperature 97.2 F L 98.2 F Pulse Rate 68 15 L 70 Respiratory 16 15 Rate Blood Pressure 118/79 Blood Pressure 118/79 [Right] O2 Sat by Pulse 99 100 Oximetry Critical care attestation.: If time is entered above; I have spent that time in minutes in the direct care of this critically ill patient, excluding procedure time. ED Disposition Clinical Impression: Seizure disorder, Encounter for medication refill Disposition: 01 HOME / SELF CARE / HOMELESS Is pt being admited?: No Does the pt Need Aspirin: No Condition: Stable Instructions: Epilepsy, [id number] Additional Instructions: Return to the emergency department should you develop worsening symptoms, inability to tolerate food or liquids, high fever or any other concerns Prescriptions: levETIRAcetam [Keppra TAB] 500 mg PO BID #60 tablet Referrals: JIAN MUNOZ MD [Referring] - 3-5 Days (Dr. Munoz is a neurologist. Please keep your appointment with him for further evaluation)
--- NOTE | 2022-03-06 13:26 | Emergency Department Report ---
HPI - General Chief Complaint: Seizure PUI?: No Time Seen by Provider: 03/06/22 13:11 - HPI HPI: MSE 1 The patient is a 42-year-old female present with chief complaint of needing seizure medication refill. Patient states she has a history of seizures but was taken off of her Keppra in 2013. The patient states for the past month she is had a recurrence of her previous episodes of myoclonic jerks. Patient states they have been coming more frequently over the past month. Patient states this is the exact same presentation she has had in the past has been attributed to her seizure disorder. Patient is simply requesting a prescription for Keppra ED Past Medical Hx - Past Medical History Hx GERD: Yes Hx Arthritis: Yes Hx Headaches / Migraines: Yes Hx Seizures: Yes (LAST 2013, "jerks" - daily) Additional medical history: fibromyalgia, mvp, stomach ulcer, GI bleed, spinal stenosis & spondylosis. BILE DUCT STONE. anemia - Surgical History Hx Cholecystectomy: Yes Additional Surgical History: endoscopy for ulcer, etopic , tubaligation, TUBILIGATION. BILE DUCT STENT REMOVED - Family History Family history: no significant - Social History Smoking Status: Never Smoker Substance Use Type: None (Denies illicit drug use), Alcohol (Occasional) - Medications Home Medications: Home Medications Medication Instructions Recorded Confirmed Last Taken Type Ferrous Sulfate [Iron 325 MG] 325 mg PO DAILY 12/21/18 12/21/18 Unknown History Pantoprazole [Protonix] 40 mg PO BID #60 tablet 12/22/18 Unknown Rx Imitrex 100 mg PO PRN PRN #30 12/23/18 Unknown Rx Pantoprazole [Protonix TAB] 40 mg PO BID #60 tablet 12/23/18 Unknown Rx Pregabalin [Lyrica] 225 mg PO BID #60 capsule 12/23/18 Unknown Rx Nitrofurantoin [place]/M-Cryst 100 mg PO BID 5 Days #10 capsule 05/15/19 Unknown Rx [Macrobid CAP] Acetaminophen [Acetaminophen TAB] 1,000 mg PO Q6HR PRN #30 tablet 05/28/19 Unknown Rx Ibuprofen [Motrin 800 MG tab] 800 mg PO Q8HR PRN #30 tablet 05/28/19 Unknown Rx Ketotifen Fumarate [Zaditor] 2 drop OP DAILY PRN 5 Days #5 ml 07/15/19 Unknown Rx Ofloxacin 0.3% [Ocuflox 0.3% opth] 2 drops OP Q3H 10 Days #5 ml 05/28/19 Unknown Rx Acetaminophen [Acetaminophen TAB] 1,000 mg PO Q6HR #30 tablet 07/22/19 Unknown Rx Mupirocin [Bactroban 2% OINT] 1 applic TP TID #1 tube 07/22/19 Unknown Rx cephALEXin [Keflex] 500 mg PO Q8HR 10 Days #30 cap 07/22/19 Unknown Rx diphenhydrAMINE [Benadryl CAP] 25 mg PO Q8HR PRN #30 capsule 07/22/19 Unknown Rx Naproxen 500 mg PO Q12H PRN #12 tablet 05/31/21 Unknown Rx levETIRAcetam [Keppra TAB] 500 mg PO BID #60 tablet 03/06/22 Unknown Rx ED Review of Systems ROS: Stated complaint: SEIZURE JERKS Other details as noted in HPI Constitutional: no symptoms reported Eyes: denies: eye pain ENT: denies: throat pain Respiratory: no symptoms reported Cardiovascular: denies: chest pain Endocrine: no symptoms reported Gastrointestinal: denies: abdominal pain Genitourinary: denies: dysuria Musculoskeletal: denies: back pain Neurological: other (Myoclonic jerks) Physical Exam - Physical Exam Vital Signs: Vital Signs 03/06/22 03/06/22 12:32 12:40 Temperature 97.2 F L Pulse Rate 68 15 L Respiratory 16 15 Rate Blood Pressure 118/79 Blood Pressure 118/79 [Right] O2 Sat by Pulse 99 Oximetry Physical Exam: GENERAL: The patient is well-developed well-nourished female sitting in chair not appearing to be in acute distress. [] HEENT: Normocephalic. Atraumatic. Extraocular motions are intact. Patient has moist mucous membranes. NECK: Supple. No meningitic signs are noted. Trachea midline CHEST/LUNGS: Clear to auscultation. There is no respiratory distress noted. HEART/CARDIOVASCULAR: Regular. There is no tachycardia. There is no gallop rub or murmur. ABDOMEN: Abdomen is soft, nontender. Patient has normal bowel sounds. There is no abdominal distention. SKIN: There is no rash. There is no edema. There is no diaphoresis. NEURO: The patient is awake, alert, and oriented. The patient is cooperative. The patient has no focal neurologic deficits. The patient has normal speech. Cranial nerv There is no evidence of acute injury. ED Course Vital Signs 03/06/22 03/06/22 12:32 12:40 Temperature 97.2 F L Pulse Rate 68 15 L Respiratory 16 15 Rate Blood Pressure 118/79 Blood Pressure 118/79 [Right] O2 Sat by Pulse 99 Oximetry ED Medical Decision Making - Differential Diagnosis Seizure Critical care attestation.: If time is entered above; I have spent that time in minutes in the direct care of this critically ill patient, excluding procedure time. ED Disposition Clinical Impression: Seizure disorder, Encounter for medication refill Disposition: HOME / SELF CARE / HOMELESS Is pt being admited?: No Does the pt Need Aspirin: No Condition: Stable Instructions: Epilepsy, [id number] Additional Instructions: Return to the emergency department should you develop worsening symptoms, inability to tolerate food or liquids, high fever or any other concerns Prescriptions: levETIRAcetam [Keppra TAB] 500 mg PO BID #60 tablet Referrals: JIAN MUNOZ MD [Referring] - 3-5 Days (Dr. Munoz is a neurologist. Please keep your appointment with him for further evaluation) Time of Disposition: 13:24
== END 2022-03-06 13:31 | disposition home or self-care (01) ==
LOC: ED 12:13
DX: G40.909 Epilepsy, unspecified, not intractable, without status epilepticus (principal); Z76.0 Encounter for issue of repeat prescription; Z88.6 Allergy status to analgesic agent; Z90.49 Acquired absence of other specified parts of digestive tract
CPT/HCPCS: 99282

== ENCOUNTER 2022-05-02 13:25 | Emergency (ER) | payer OTHER ==
[2022-05-02] MEDS ORDERED: ASPIRIN 325 MG TAB PO ONE (15:36)
--- NOTE | 2022-05-02 16:04 | XRay Report ---
CHEST 2 VIEWS INDICATION: heart palpitations. COMPARISON: 12/25/2017 FINDINGS: SUPPORT DEVICES: None. HEART: Within normal limits. LUNGS/PLEURA: No acute air space or interstitial disease. No pneumothorax. ADDITIONAL FINDINGS: None. IMPRESSION: 1. No acute findings. Signer Name: Melo Bradley MD Signed: 05/02/2022 4:00 PM Workstation Name: [id number]
[2022-05-02 16:58] LABS: Basophils % (Auto) 0.8 % (0.0-1.8); Eosinophils # (Auto) 0.1 K/mm3 (0.0-0.4); Eosinophils % (Auto) 1.8 % (0.0-4.3); Hematocrit 39.6 % (30.3-42.9); Hemoglobin 13.4 gm/dl (10.1-14.3); Lymphocytes # (Auto) 1.9 K/mm3 (1.2-5.4); Lymphocytes % (Auto) 38.8 % (13.4-35.0); Mean Corpuscular HGB Conc 34 % (30-34); Mean Corpuscular Volume 99 fl (79-97); Monocytes # (Auto) 0.3 K/mm3 (0.0-0.8); Monocytes % (Auto) 5.9 % (0.0-7.3); Platelet Count 247 K/mm3 (140-440); Red Blood Count 4.01 M/mm3 (3.65-5.03); Red Cell Distribution Width 13.2 % (13.2-15.2)
[2022-05-02 17:01] LABS: Alanine Aminotransferase 19 units/L (7-56); Albumin 4.4 g/dL (3.9-5); BUN/Creatinine Ratio 10; Blood Urea Nitrogen 8 mg/dL (7-17); Calcium 9.8 mg/dL (8.4-10.2); Hemolysis Index 9
--- NOTE | 2022-05-03 08:01 | Emergency Department Report ---
HPI - General Chief Complaint: Arrhythmia/Palpitations Time Seen by Provider: 05/03/22 07:41 - HPI HPI: Room 1 The patient is a 41-year-old female present with chief complaint of palpitations and chest pain. Patient states yesterday she developed intermittent palpitations whenever she exerts herself. Patient states today she developed sharp chest pain associated with her palpitations. Patient mitts to shortness of breath and nausea without vomiting with her palpitations. Patient denies history of fever or cough. Patient is currently asymptomatic stating "I am okay." Patient denies pleurisy or recent flights/long car trips. Patient states she had a normal stress test earlier this year ED Past Medical Hx - Past Medical History Previous Medical History?: Yes Hx GERD: Yes Hx Arthritis: Yes Hx Headaches / Migraines: Yes Hx Seizures: Yes (LAST 2013, "jerks" - daily) Additional medical history: fibromyalgia, mvp, stomach ulcer, GI bleed, spinal stenosis & spondylosis. BILE DUCT STONE. anemia - Surgical History Past Surgical History?: Yes Hx Cholecystectomy: Yes Additional Surgical History: endoscopy for ulcer, etopic , tubaligation, TUBILIGATION. BILE DUCT STENT REMOVED - Family History Family history: no significant - Social History Smoking Status: Never Smoker Substance Use Type: None (Denies illicit drug use), Alcohol (Occasional) - Medications Home Medications: Home Medications Medication Instructions Recorded Confirmed Last Taken Type Ferrous Sulfate [Iron 325 MG] 325 mg PO DAILY 12/21/18 12/21/18 Unknown History Pantoprazole [Protonix] 40 mg PO BID #60 tablet 12/22/18 Unknown Rx Imitrex 100 mg PO PRN PRN #30 12/23/18 Unknown Rx Pantoprazole [Protonix TAB] 40 mg PO BID #60 tablet 12/23/18 Unknown Rx Pregabalin [Lyrica] 225 mg PO BID #60 capsule 12/23/18 Unknown Rx Nitrofurantoin [place]/M-Cryst 100 mg PO BID 5 Days #10 capsule 05/15/19 Unknown Rx [Macrobid CAP] Acetaminophen [Acetaminophen TAB] 1,000 mg PO Q6HR PRN #30 tablet 05/28/19 Unknown Rx Ibuprofen [Motrin 800 MG tab] 800 mg PO Q8HR PRN #30 tablet 05/28/19 Unknown Rx Ketotifen Fumarate [Zaditor] 2 drop OP DAILY PRN 5 Days #5 ml 05/28/19 Unknown Rx Ofloxacin 0.3% [Ocuflox 0.3% opth] 2 drops OP Q3H 10 Days #5 ml 05/28/19 Unknown Rx Acetaminophen [Acetaminophen TAB] 1,000 mg PO Q6HR #30 tablet 07/22/19 Unknown Rx Mupirocin [Bactroban 2% OINT] 1 applic TP TID #1 tube 07/22/19 Unknown Rx cephALEXin [Keflex] 500 mg PO Q8HR 10 Days #30 cap 07/22/19 Unknown Rx diphenhydrAMINE [Benadryl CAP] 25 mg PO Q8HR PRN #30 capsule 07/22/19 Unknown Rx Naproxen 500 mg PO Q12H PRN #12 tablet 05/31/21 Unknown Rx levETIRAcetam [Keppra TAB] 500 mg PO BID #60 tablet 03/06/22 Unknown Rx ED Review of Systems ROS: Stated complaint: CHEST PAIN/PALPITATION Other details as noted in HPI Constitutional: denies: fever Eyes: denies: eye pain ENT: denies: throat pain Respiratory: denies: cough Cardiovascular: chest pain, palpitations Endocrine: no symptoms reported Gastrointestinal: nausea. denies: abdominal pain, vomiting Genitourinary: denies: dysuria Musculoskeletal: denies: back pain Neurological: denies: headache Physical Exam - Physical Exam Vital Signs: Vital Signs 05/02/22 05/03/22 15:15 07:49 Temperature 98.3 F 97.9 F Pulse Rate 76 88 Respiratory 20 13 Rate Blood Pressure 134/92 149/93 [Right] O2 Sat by Pulse 99 100 Oximetry Physical Exam: GENERAL: The patient is well-developed well-nourished female lying on stretcher not appearing to be in acute distress. [] HEENT: Normocephalic. Atraumatic. Extraocular motions are intact. Patient has moist mucous membranes. NECK: Supple. Trachea midline CHEST/LUNGS: Clear to auscultation. There is no respiratory distress noted. HEART/CARDIOVASCULAR: Regular. There is no tachycardia. There is no gallop rub or murmur. ABDOMEN: Abdomen is soft, nontender. Patient has normal bowel sounds. There is no abdominal distention. SKIN: There is no rash. There is no edema. There is no diaphoresis. NEURO: The patient is awake, alert, and oriented. The patient is cooperative. The patient has no focal neurologic deficits. The patient has normal speech. GCS 15 MUSCULOSKELETAL: There is no evidence of acute injury. ED Course Vital Signs 05/02/22 05/03/22 15:15 07:49 Temperature 98.3 F 97.9 F Pulse Rate 76 88 Respiratory 20 13 Rate Blood Pressure 134/92 149/93 [Right] O2 Sat by Pulse 99 100 Oximetry ED Medical Decision Making - Lab Data Result diagrams: 05/02/22 16:15 05/02/22 16:15 Laboratory Tests 05/02/22 05/02/22 05/02/22 16:15 16:15 23:16 WBC 4.9 RBC 4.01 Hgb 13.4 Hct 39.6 MCV 99 H MCH 33 H MCHC 34 RDW 13.2 Plt Count 247 Lymph % (Auto) 38.8 H [place] % (Auto) 5.9 Eos % (Auto) 1.8 Baso % (Auto) 0.8 Lymph # (Auto) 1.9 [place] # (Auto) 0.3 Eos # (Auto) 0.1 Baso # (Auto) 0.0 Seg Neutrophils % 52.7 Seg Neutrophils # 2.6 D-Dimer Sodium 138 Potassium 4.2 Chloride 101.0 Carbon Dioxide 27 Anion Gap 14 BUN 8 Creatinine 0.8 Estimated GFR > 60 BUN/Creatinine Ratio 10 Glucose 89 Calcium 9.8 Total Bilirubin 0.50 AST 29 ALT 19 Alkaline Phosphatase 68 Troponin T < 0.010 < 0.010 Total Protein 7.6 Albumin 4.4 Albumin/Globulin Ratio 1.4 TSH Free T4 05/03/22 05/03/22 08:56 08:56 WBC RBC Hgb Hct MCV MCH MCHC RDW Plt Count Lymph % (Auto) [place] % (Auto) Eos % (Auto) Baso % (Auto) Lymph # (Auto) [place] # (Auto) Eos # (Auto) Baso # (Auto) Seg Neutrophils % Seg Neutrophils # D-Dimer 207.88 Sodium Potassium Chloride Carbon Dioxide Anion Gap BUN Creatinine Estimated GFR BUN/Creatinine Ratio Glucose Calcium Total Bilirubin AST ALT Alkaline Phosphatase Troponin T Total Protein Albumin Albumin/Globulin Ratio TSH 1.580 Free T4 1.25 - EKG Data -: EKG Interpreted by Or EKG shows normal: sinus rhythm, axis Rate: normal (72 bpm) - EKG Data When compared to previous EKG there are: previous EKG unavailable Interpretation: nonspecific ST-T wave rochelle (T wave inversion in lead V2) - Radiology Data Radiology results: report reviewed (Chest x-ray), image reviewed (Chest x-ray) interpreted by me: Chest x-ray-no definite focal infiltrates, no pneumothorax [facility] [address] [place] [address] XRay Report Signed Patient: MARGRET SAUER MR#: [id number] : 1980 Acct:[id number] Age/Sex: 41 / F ADM Date: 05/02/22 Loc: ED Attending Dr: Ordering Physician: ED MD DARRELL Date of Service: 05/02/22 Procedure(s): XR chest routine 2V Accession Number(s): [id number] cc: ED MD DARRELL Fluoro Time In Minutes: CHEST 2 VIEWS INDICATION: heart palpitations. COMPARISON: 12/25/2017 FINDINGS: SUPPORT DEVICES: None. HEART: Within normal limits. LUNGS/PLEURA: No acute air space or interstitial disease. No pneumothorax. ADDITIONAL FINDINGS: None. IMPRESSION: 1. No acute findings. Signer Name: Melo Bradley MD Signed: 05/02/2022 4:00 PM Workstation Name: [id number] Transcribed By: JW Dictated By: Melo Bradley MD Electronically Authenticated By: Melo Bradley MD Signed Date/Time: 05/02/22 1600 DD/ 1600 TD/TT: - Differential Diagnosis ACS, PE, pericarditis, GERD Critical care attestation.: If time is entered above; I have spent that time in minutes in the direct care of this critically ill patient, excluding procedure time. ED Disposition Clinical Impression: Atypical chest pain, Palpitations Disposition: HOME HEALTH CARE SERVICE Is pt being admited?: No Does the pt Need Aspirin: No Condition: Stable Instructions: Nonspecific Chest Pain, Adult, Palpitations Additional Instructions: Return to the emergency department should you develop worsening symptoms, inability to tolerate food or liquids, high fever or any other concerns Referrals: ALYSON RAMIREZ MD [Primary Care Provider] - 3-5 Days LAURI OSBORNE MD [Staff Physician] - CHRIS (Dr. Osborne is a vice president of operations. Please follow-up with him for further evaluation of your palpitations) Time of Disposition: 11:10 Heart Score - HEART Score History: Slightly suspicious EKG: Non-specific Age: < 45 Risk factors: No known risk factors Troponin: < normal limit HEART Score: 1 - EKG Read Time Time EKG Completed: 08:17 EKG Read Time: 11:08
--- NOTE | 2022-05-03 09:34 | Electrocardiograph Report ---
[facility] Test Date: 2022-05-02 Test Time: 15:30:46 Pat Name: MARGRET SAUER Department: Room: Gender: F Research Program Internship: Jeffery SUTHERLAND RN : 1980 Requested By: ED DOC Order Number: [id number] Reading MD: Yossi Florence Measurements Intervals [place] Rate: 72 P: 46 OR: 166 QRS: 6 QRSD: 83 T: 51 QT: 414 QTc: 453 Interpretive Statements Sinus rhythm Probable left atrial enlargement nonspecific st-t in v1 and v2 Probable left ventricular hypertrophy No previous ECG available for comparison Electronically Signed On 05-03-2022 9:33:43 EDT by Yossi Florence
[2022-05-03 09:52] LABS: Free T4 (Free Thyroxine) 1.25 ng/dL (0.76-1.46)
[2022-05-03 11:43] VITALS: BP 95/66
--- NOTE | 2022-05-06 18:42 | Electrocardiograph Report ---
[facility] Test Date: 2022-05-03 Test Time: 08:17:06 Pat Name: MARGRET SAUER Department: Room: Gender: F Signal Constructor: NURSE : 1980 Requested By: VISHNU STOREY Order Number: [id number] Reading MD: Mark Perez Measurements Intervals [place] Rate: 74 P: 46 SD: 172 QRS: -1 QRSD: 84 T: 56 QT: 397 QTc: 439 Interpretive Statements Sinus rhythm Compared to ECG 05/02/2022 15:30:46 No significant changes Electronically Signed On 05-06-2022 18:41:29 EDT by Mark Perez
== END 2022-05-03 11:43 | disposition home health service (06) ==
LOC: ED 13:25
DX: R07.89 Other chest pain (principal); R00.2 Palpitations; K21.9 Gastro-esophageal reflux disease without esophagitis; M19.90 Unspecified osteoarthritis, unspecified site; R56.9 Unspecified convulsions; D64.9 Anemia, unspecified; K80.50 Calculus of bile duct without cholangitis or cholecystitis without obstruction; Z98.890 Other specified postprocedural states
CPT/HCPCS: 36415; 71046; 80053; 84439; 84443; 84484; 85025; 85379; 93005; 99284